=== PATIENT | female | born 1995 | race Caucasian/White ===

== ENCOUNTER 2018-10-11 09:49 | Inpatient (IN) | payer BC ==
[2018-10-11] MEDS ORDERED: fentaNYL 100 MCG/2 ML SDV EPIDUR PRN (11:59)
[2018-10-11] MEDS ORDERED: diphenhydrAMINE 50 MG/ML SDV IVPUSH PRN (11:59)
[2018-10-11] MEDS ORDERED: ePHEDrine 50 MG/ML SDV IVPUSH PRN (11:59)
[2018-10-11] MEDS ORDERED: fentaNYL/Bupivacaine-NS 2 MCG/ML-0.125%/PF 100 ML Bag EP SCH (12:00)
[2018-10-11] MEDS ORDERED: Ondansetron 4 MG/2 ML SDV IVPUSH PRN (12:02)
[2018-10-11] MEDS ORDERED: Lidocaine 1% 50 ML MDV INJECT ONE (12:02)
[2018-10-11] MEDS ORDERED: Nalbuphine 20 MG/ML 1 ML Syringe IVPUSH PRN (12:02)
[2018-10-11] MEDS ORDERED: Sodium Chloride 0.9% 10 ML Syringe FLUSH PRN (12:02)
[2018-10-11] MEDS ORDERED: Lactated Ringers 1,000 ML IV SCH (12:15)
[2018-10-11] MEDS ORDERED: Oxytocin/Lactated Ringers 10 UNIT/1,000 ML BAG IV SCH ×2 (12:15)
[2018-10-11] MEDS ORDERED: Lidocaine 1% 50 ML MDV ONE (19:38)
--- NOTE | 2018-10-11 23:56 | PCM.SN ---
- Free Text/Narrative Note: Stage I- Patient presented in active labor. AROM clear fluid. Stage II - of viable female, weight 7#11oz, 8/9 APGARS. Head delivered in controlled manner over intact perineum. Body and shoulders atraumatically. Positive cry. Cord clamped and cut. Stage III - of intact placenta. 3vc. EBL 300.
[2018-10-12] MEDS ORDERED: Docusate Sodium 100 MG Cap PO PRN (01:06)
[2018-10-12] MEDS ORDERED: Benzocaine/Menthol 20%-0.5% Spray 56 GM Canister TOP PRN (01:06)
[2018-10-12] MEDS ORDERED: Lanolin 100% Cream 7 GM Tube TOP PRN (01:06)
[2018-10-12] MEDS ORDERED: Witch Hazel Medicated Pads 100/Jar TOP PRN (01:06)
[2018-10-12] MEDS: Ibuprofen 600 MG Tab PO PRN ×3 (01:23→20:16)
--- NOTE | 2018-10-12 08:54 | PCM.PNPP ---
- General Info Date of Service: 10/12/18 Functional Status: Reports: Pain Controlled - Review of Systems General: Reports: No Symptoms HEENT: Reports: No Symptoms Pulmonary: Reports: No Symptoms Cardiovascular: Reports: No Symptoms Gastrointestinal: Reports: No Symptoms Genitourinary: Reports: No Symptoms Musculoskeletal: Reports: No Symptoms Skin: Reports: No Symptoms Neurological: Reports: No Symptoms Psychiatric: Reports: No Symptoms - General Info Date of Service: 10/12/18 - Patient Data Vital Signs - Most Recent: Last Vital Signs Temp 36.2 C 10/12/18 03:58 Pulse 76 10/12/18 03:58 Resp 16 10/12/18 03:58 BP 122/77 10/12/18 03:58 Pulse Ox 100 10/12/18 03:58 Weight - Most Recent: 87.997 kg I&O - Last 24 Hours: Intake & Output 10/11/18 10/12/18 10/12/18 22:59 06:59 14:59 Intake Total 1000 Balance 1000 Lab Results - Last 24 Hours: Laboratory Results - last 24 hr 10/11/18 10/11/18 Range/Units 12:25 12:25 WBC 7.56 (3.98-10.04) K/mm3 RBC 3.94 L (3.98-5.22) M/mm3 Hgb 11.5 (11.2-15.7) gm/L Hct 35.3 (34.1-44.9) % MCV 89.6 (79.4-94.8) fl MCH 29.2 (25.6-32.2) pg MCHC 32.6 (32.2-35.5) g/dl RDW Std Deviation 40.9 (36.4-46.3) fL Plt Count 249 (182-369) K/mm3 MPV 9.6 (9.4-12.3) fl Neut % (Auto) 73.9 H (34.0-71.1) % Lymph % (Auto) 21.2 (19.3-51.7) % [place] % (Auto) 4.5 L (4.7-12.5) % Eos % (Auto) 0 L (0.7-5.8) Baso % (Auto) 0.0 L (0.1-1.2) % Neut # (Auto) 5.59 (1.56-6.13) K/mm3 Lymph # (Auto) 1.60 (1.18-3.74) K/mm3 [place] # (Auto) 0.34 (0.24-0.36) K/mm3 Eos # (Auto) 0.00 L (0.04-0.36) K/mm3 Baso # (Auto) 0.00 L (0.01-0.08) K/mm3 Blood Type O POSITIVE Gel Antibody Screen Negative Med Orders - Current: Current Medications Benzocaine/Menthol (Dermoplast Pain Relief [place]) 0 gm TOP ASDIRECTED PRN PRN Reason: Perineal Comfort Measure Last Admin: 10/12/18 01:20 Dose: 1 canister Docusate Sodium (Colace) 100 mg PO BID PRN PRN Reason: Constipation Last Admin: 10/12/18 01:24 Dose: 100 mg Emollient Ointment (Lansinoh Hpa) 0 gm TOP ASDIRECTED PRN PRN Reason: Sore Nipples Ibuprofen (Motrin) 600 mg PO Q6H PRN PRN Reason: Mild pain or fever Last Admin: 10/12/18 01:23 Dose: 600 mg Witch Genevieve (Tucks) 1 pad TOP ASDIRECTED PRN PRN Reason: Hemorrhoid pain Last Admin: 10/12/18 01:21 Dose: 1 tub Discontinued Medications Diphenhydramine HCl (Benadryl) 25 mg IVPUSH Q6H PRN PRN Reason: Itching Ephedrine Sulfate (Ephedrine Sulfate) 5 mg IVPUSH ASDIRECTED PRN PRN Reason: HYPOTENTSION Fentanyl (Sublimaze) 100 mcg EPIDUR Q3H PRN PRN Reason: Pain Fentanyl/Bupivacaine HCl (Oylvufwx-Rfubu-Bi 2 Mcg/Ml-0.125%) 100 ml EP ASDIRECTED LENIN Lactated Ringer's (Ringers, Lactated) 1,000 mls @ 100 mls/hr IV ASDIRECTED LENIN Oxytocin/Lactated Ringer's (Pitocin In Lr 10 Units/1,000 Ml) 10 unit in 1,000 mls @ 12 mls/hr IV TITRATE LENIN; Protocol Oxytocin/Lactated Ringer's (Pitocin In Lr 10 Units/1,000 Ml) 10 unit in 1,000 mls @ 100 mls/hr IV .CONTINUOUS LENIN; Protocol Last Admin: 10/11/18 23:21 Dose: 100 mls/hr Lidocaine HCl (Xylocaine 1%) 50 ml INJECT ONETIME ONE Stop: 10/11/18 12:03 Last Admin: 10/11/18 22:50 Dose: 50 ml Lidocaine HCl (Xylocaine 1%) Confirm Administered Dose 50 ml .ROUTE .STK-MED ONE Stop: 10/11/18 19:39 Last Admin: 10/11/18 23:20 Dose: Not Given Nalbuphine HCl (Nubain) 10 mg IVPUSH Q2H PRN PRN Reason: pain Ondansetron HCl (Zofran) 4 mg IVPUSH Q4H PRN PRN Reason: Nausea/Vomiting Sodium Chloride (Saline Flush) 10 ml FLUSH ASDIRECTED PRN PRN Reason: Keep Vein Open - Infant Interaction Infant Disposition, : Heaters at Bedside Support Person: Mother, Friend - Recovery Exam Fundal Tone: Firm Fundal Level: 1 Fingerbreadths Below Umbilicus Fundal Placement: Midline Lochia Amount: Small, Moderate Lochia Color: Rubra/Red Perineum Description: Edematous, Other (see below) Other Perinuem Description: 2 nd degree with repair Episiotomy/Laceration: Approximated Bladder Status: Voiding Urinary Elimination: Voided - Exam General: Alert, Oriented HEENT: Pupils Equal Neck: Supple Lungs: Clear to Auscultation, Normal Respiratory Effort Cardiovascular: Regular Rate, Regular Rhythm GI/Abdominal Exam: Normal Bowel Sounds, Soft, Non-Tender, No Organomegaly, No Distention, No Abnormal Bruit, No Mass, Pelvis Stable Extremities: Normal Inspection, Normal Range of Motion, Non-Tender, No Pedal Edema, Normal Capillary Refill Wound/Incisions: Healing Well Neurological: No New Focal Deficit Psy/Mental Status: Alert, Normal Affect, Normal Mood - Problem List Review Problem List Initiated/Reviewed/Updated: Yes - My Orders Last 24 Hours: My Active Orders 10/12/18 01:06 Activity as Tolerated [RC] PER UNIT ROUTINE Vital Signs [RC] 21,03,09,15 Benzocaine/Menthol [Dermoplast Pain Relief [place]] See Dose Instructions TOP ASDIRECTED PRN Docusate Sodium [Colace] 100 mg PO BID PRN Ibuprofen [Motrin] 600 mg PO Q6H PRN Lanolin [Lansinoh HPA] See Dose Instructions TOP ASDIRECTED PRN [place] [Tucks] 1 pad TOP ASDIRECTED PRN Assess Lochia [WOMSER] Per Unit Routine Assess Uterine Involution [WOMSER] Per Unit Routine Breast Pump [WOMSER] Per Unit Routine Heat Therapy [OM.PC] PRN Medication Administration Instruction [OM.PC] Routine Perineal Care [OM.PC] Per Unit Routine Sitz Bath [OM.PC] Per Unit Routine 10/12/18 Breakfast Regular Diet [DIET] 10/13/18 01:06 Heat Therapy [OM.PC] PRN - Assessment Assessment:: Term labor PPD1 s/p . Doing well.
--- NOTE | 2018-10-12 08:59 | PCM.LDHP ---
L&D History of Present Illness - General Date of Service: 10/11/18 Admit Problem/Dx: Admission Diagnosis/Problem Admission Diagnosis/Problem Source of Information: Patient, Provider, RN Notes Reviewed History Limitations: Reports: No Limitations - History of Present Illness Introduction:: 23 [address] of Dr[address] Crandall admitted this morning by Dr. Koroma in labor at 38w6d. AROM earlier in day clear fluid. No significant complications this . Regular care. 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: Psychiatric History: Reports: Anxiety, Depression Other Psychiatric History: duing well now has been off meds for over a year - Past Surgical History Other Musculoskeletal Surgeries/Procedures:: broken arm age 8 Social & Family History - Family History Family Medical History: Noncontributory - Tobacco Use Smoking Status *Q: Former Smoker Used Tobacco, but Quit: Yes Month/Year Tobacco Last Used: over a year ago Second Hand Smoke Exposure: No - Caffeine Use Caffeine Use: Reports: Soda - Recreational Drug Use Recreational Drug Use: No H&P Review of Systems - Review of Systems: Review Of Systems: See Below General: Reports: No Symptoms HEENT: Reports: No Symptoms Pulmonary: Reports: No Symptoms Cardiovascular: Reports: No Symptoms Gastrointestinal: Reports: No Symptoms Genitourinary: Reports: No Symptoms Musculoskeletal: Reports: No Symptoms Skin: Reports: No Symptoms Psychiatric: Reports: No Symptoms Neurological: Reports: No Symptoms Hematologic/Lymphatic: Reports: No Symptoms Immunologic: Reports: No Symptoms L&D Exam - Exam Exam: See Below - Vital Signs Vital Signs: Last Vital Signs Temp 36.2 C 10/12/18 03:58 Pulse 76 10/12/18 03:58 Resp 16 10/12/18 03:58 BP 122/77 10/12/18 03:58 Pulse Ox 100 10/12/18 03:58 Weight: 87.997 kg - OB Specific Contraction Intensity: Moderate Movement: Active Heart Tones: Present Heart Rate (FHR) Variability: Moderate (6-25 bmp) Presentation: Vertex - Narayanan Score Narayanan Score Cervix Position: Midposition Narayanan Score Consistency: Soft Narayanan Score Effacement: 51-70% Narayanan Score Dilation: > 5 cm Narayanan Score Infant's Station: -1 ,0 Narayanan Score Total: 10 - Patient Data Lab Results Last 24 hrs: Laboratory Results - last 24 hr 10/11/18 10/11/18 Range/Units 12:25 12:25 WBC 7.56 (3.98-10.04) K/mm3 RBC 3.94 L (3.98-5.22) M/mm3 Hgb 11.5 (11.2-15.7) gm/L Hct 35.3 (34.1-44.9) % MCV 89.6 (79.4-94.8) fl MCH 29.2 (25.6-32.2) pg MCHC 32.6 (32.2-35.5) g/dl RDW Std Deviation 40.9 (36.4-46.3) fL Plt Count 249 (182-369) K/mm3 MPV 9.6 (9.4-12.3) fl Neut % (Auto) 73.9 H (34.0-71.1) % Lymph % (Auto) 21.2 (19.3-51.7) % [place] % (Auto) 4.5 L (4.7-12.5) % Eos % (Auto) 0 L (0.7-5.8) Baso % (Auto) 0.0 L (0.1-1.2) % Neut # (Auto) 5.59 (1.56-6.13) K/mm3 Lymph # (Auto) 1.60 (1.18-3.74) K/mm3 [place] # (Auto) 0.34 (0.24-0.36) K/mm3 Eos # (Auto) 0.00 L (0.04-0.36) K/mm3 Baso # (Auto) 0.00 L (0.01-0.08) K/mm3 Blood Type O POSITIVE Gel Antibody Screen Negative Result Diagrams: 10/11/18 12:25 Problem List Initiated/Reviewed/Updated: Yes Orders Last 24hrs: Active Orders 24 hr Category Date Time Status Activity as Tolerated [RC] PER UNIT ROUTINE Care 10/12/18 01:06 Active Vital Signs [RC] 21,03,09,15 Care 10/12/18 01:06 Active Regular Diet [DIET] Diet 10/12/18 Breakfast Active RAPID PLASMA REAGIN,RPR [CHEM] Routine Lab 10/11/18 12:25 Received Benzocaine/Menthol [Dermoplast Pain Relief [place]] Med 10/12/18 01:06 Active See Dose Instructions TOP ASDIRECTED PRN Docusate Sodium [Colace] Med 10/12/18 01:06 Active 100 mg PO BID PRN Ibuprofen [Motrin] Med 10/12/18 01:06 Active 600 mg PO Q6H PRN Lanolin [Lansinoh HPA] Med 10/12/18 01:06 Active See Dose Instructions TOP ASDIRECTED PRN Witch Genevieve [Tucks] Med 10/12/18 01:06 Active 1 pad TOP ASDIRECTED PRN Assess Lochia [WOMSER] Per Unit Routine Oth 10/12/18 01:06 Ordered Assess Uterine Involution [WOMSER] Per Unit Routine Oth 10/12/18 01:06 Ordered Breast Pump [WOMSER] Per Unit Routine Oth 10/12/18 01:06 Ordered Heat Therapy [OM.PC] PRN Oth 10/12/18 01:06 Ordered Heat Therapy [OM.PC] PRN Oth 10/13/18 01:06 Ordered Medication Administration Instruction [OM.PC] Routine Oth 10/12/18 01:06 Ordered Perineal Care [OM.PC] Per Unit Routine Oth 10/12/18 01:06 Ordered Sitz Bath [OM.PC] Per Unit Routine Oth 10/12/18 01:06 Ordered Resuscitation Status Routine Resus Stat 10/11/18 10:19 Ordered Medication Orders Benzocaine/Menthol (Dermoplast Pain Relief [place]) 0 gm TOP ASDIRECTED PRN PRN Reason: Perineal Comfort Measure Last Admin: 10/12/18 01:20 Dose: 1 canister Docusate Sodium (Colace) 100 mg PO BID PRN PRN Reason: Constipation Last Admin: 10/12/18 01:24 Dose: 100 mg Emollient Ointment (Lansinoh Hpa) 0 gm TOP ASDIRECTED PRN PRN Reason: Sore Nipples Ibuprofen (Motrin) 600 mg PO Q6H PRN PRN Reason: Mild pain or fever Last Admin: 10/12/18 01:23 Dose: 600 mg Witch Genevieve (Tucks) 1 pad TOP ASDIRECTED PRN PRN Reason: Hemorrhoid pain Last Admin: 10/12/18 01:21 Dose: 1 tub Assessment/Plan Comment:: Doing well. 6 cm. Continue to monitor and anticipate unless otherwise indicated.
[2018-10-12] MEDS ORDERED: Calcium Carbonate 500 MG Tab.Chew CHEW PRN (12:16)
[2018-10-13] MEDS: Ibuprofen 600 MG Tab PO PRN (07:56)
--- NOTE | 2018-10-13 08:41 | PCM.DCSUM1 ---
Discharge Summary - Hospital Course Diagnosis: Stroke: No - Discharge Data Discharge Date: 10/13/18 Discharge Disposition: Home, Self-Care 01 Condition: Good - Patient Instructions Diet: Usual Diet as Tolerated Activity: No Strenuous Activities Driving: May Drive Today Showering/Bathing: May Shower Notify Provider of: Fever, Increased Pain, Swelling and Redness, Drainage, Nausea and/or Vomiting - Discharge Plan *PRESCRIPTION DRUG MONITORING PROGRAM REVIEWED*: No *COPY OF PRESCRIPTION DRUG MONITORING REPORT IN PATIENT [place]: No Home Medications: Home Meds Acetaminophen/Butalbital/Caff [Fioricet 325-50-40 MG] 1 each PO DAILY 10/11/18 [ History] Cyclobenzaprine [Flexeril] 10 mg PO DAILY 10/11/18 [History] Omeprazole 20 mg PO DAILY 10/11/18 [History] Prenat Vit Comb.10/Iron/Fa/Dha [Vitafol-OB + DHA] 1 each PO DAILY 10/11/18 [ History] diphenhydrAMINE [Benadryl] 50 mg PO DAILY PRN 10/11/18 [History] Referrals: Krista Conti MD [Physician] - - Discharge Summary/Plan Comment DC Time >30 min.: No - General Info Date of Service: 10/13/18 Functional Status: Reports: Pain Controlled - Review of Systems General: Reports: No Symptoms HEENT: Reports: No Symptoms Pulmonary: Reports: No Symptoms Cardiovascular: Reports: No Symptoms Gastrointestinal: Reports: No Symptoms Genitourinary: Reports: No Symptoms Musculoskeletal: Reports: No Symptoms Skin: Reports: No Symptoms Neurological: Reports: No Symptoms Psychiatric: Reports: No Symptoms - Patient Data Vitals - Most Recent: Last Vital Signs Temp 36.7 C 10/13/18 03:12 Pulse 86 10/13/18 03:12 Resp 16 10/12/18 21:26 BP 113/74 10/13/18 03:12 Pulse Ox 98 10/13/18 03:12 Weight - Most Recent: 87.997 kg I&O - Last 24 hours: Intake & Output 10/12/18 10/13/18 10/13/18 22:59 06:59 14:59 Intake Total 120 Balance 120 Lab Results - Last 24 hrs: Laboratory Results - last 24 hr 10/11/18 Range/Units 12:25 Gel Antibody Screen Negative Med Orders - Current: Current Medications Benzocaine/Menthol (Dermoplast Pain Relief [place]) 0 gm TOP ASDIRECTED PRN PRN Reason: Perineal Comfort Measure Last Admin: 10/12/18 01:20 Dose: 1 canister Calcium Carbonate/Glycine (Tums) 1,000 mg CHEW Q2HR PRN PRN Reason: Heartburn Last Admin: 10/12/18 12:26 Dose: 1,000 mg Docusate Sodium (Colace) 100 mg PO BID PRN PRN Reason: Constipation Last Admin: 10/12/18 01:24 Dose: 100 mg Emollient Ointment (Lansinoh Hpa) 0 gm TOP ASDIRECTED PRN PRN Reason: Sore Nipples Ibuprofen (Motrin) 600 mg PO Q6H PRN PRN Reason: Mild pain or fever Last Admin: 10/13/18 07:56 Dose: 600 mg Witch [place]evieve (Tucks) 1 pad TOP ASDIRECTED PRN PRN Reason: Hemorrhoid pain Last Admin: 10/12/18 01:21 Dose: 1 tub Discontinued Medications Diphenhydramine HCl (Benadryl) 25 mg IVPUSH Q6H PRN PRN Reason: Itching Ephedrine Sulfate (Ephedrine Sulfate) 5 mg IVPUSH ASDIRECTED PRN PRN Reason: HYPOTENTSION Fentanyl (Sublimaze) 100 mcg EPIDUR Q3H PRN PRN Reason: Pain Fentanyl/Bupivacaine HCl (Jacmsgne-Fyooj-Az 2 Mcg/Ml-0.125%) 100 ml EP ASDIRECTED LENIN Lactated Ringer's (Ringers, Lactated) 1,000 mls @ 100 mls/hr IV ASDIRECTED LENIN Oxytocin/Lactated Ringer's (Pitocin In Lr 10 Units/1,000 Ml) 10 unit in 1,000 mls @ 12 mls/hr IV TITRATE LENIN; Protocol Oxytocin/Lactated Ringer's (Pitocin In Lr 10 Units/1,000 Ml) 10 unit in 1,000 mls @ 100 mls/hr IV .CONTINUOUS LENIN; Protocol Last Admin: 10/11/18 23:21 Dose: 100 mls/hr Lidocaine HCl (Xylocaine 1%) 50 ml INJECT ONETIME ONE Stop: 10/11/18 12:03 Last Admin: 10/11/18 22:50 Dose: 50 ml Lidocaine HCl (Xylocaine 1%) Confirm Administered Dose 50 ml .ROUTE .STK-MED ONE Stop: 10/11/18 19:39 Last Admin: 10/11/18 23:20 Dose: Not Given Nalbuphine HCl (Nubain) 10 mg IVPUSH Q2H PRN PRN Reason: pain Ondansetron HCl (Zofran) 4 mg IVPUSH Q4H PRN PRN Reason: Nausea/Vomiting Sodium Chloride (Saline Flush) 10 ml FLUSH ASDIRECTED PRN PRN Reason: Keep Vein Open - Exam General: Reports: Alert, Oriented HEENT: Reports: Pupils Equal, Pupils Reactive, EOMI, Mucous Membr. Moist/[place] Neck: Reports: Supple Lungs: Reports: Clear to Auscultation, Normal Respiratory Effort Cardiovascular: Reports: Regular Rate, Regular Rhythm GI/Abdominal Exam: Normal Bowel Sounds, Soft, Non-Tender, No Organomegaly, No Distention, No Abnormal Bruit, No Mass, Pelvis Stable Back Exam: Reports: Normal Inspection, Full Range of Motion Extremities: Normal Inspection, Normal Range of Motion, Non-Tender, No Pedal Edema, Normal Capillary Refill Skin: Reports: Warm, Dry, Intact Wound/Incisions: Reports: Healing Well Neurological: Reports: No New Focal Deficit Psy/Mental Status: Reports: Alert, Normal Affect, Normal Mood
--- NOTE | 2018-10-14 07:39 | HP ---
DATE OF ADMISSION: 10/11/2018 ADMISSION DIAGNOSIS: A 38-5/7th weeks' intrauterine , active labor, advanced cervical dilation. HISTORY OF PRESENT ILLNESS: The patient is a 23-year-old, 1, para 0, white female who has an JOSE ALFREDO of 10/20/2018 as based upon a certain last menstrual period starting 01/13/2018 and supported by 2 ultrasounds done on 04/17/2018 and 06/05/2018. The patient has been admitted to Labor and Delivery with contractions every 3-5 minutes. Her cervix is 4 cm, 90% effaced, bulging bag of mendez, anterior, cephalic presentation, very soft consistency. The patient has undergone artificial rupture of membranes with resultant clear amniotic fluid. Over the course of the 2 hours prior to rupture of membranes, her cervix changed from 3+ to 4 cm and thinned to 90% to 95%. 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 Certain last menstrual period 01/13/2018. The patient had menarche at age 14. Cycles every 28 days. Last menstrual period was definite. No control at the time of conception. No STDs in the past. No abnormal Pap smears in the past. The patient's course was relatively unremarkable. Her [place] Depression Screen score on 04/17/2018 was 19/30. She has had some posttraumatic stress disorder having witnessed an assisted suicide 3 years ago. She also has suffered from migraine headaches. Her group B strep screen was negative. She did have some gastroesophageal reflux during . The patient has had a flu shot on 07/03/2018. Her Tdap was done on 07/31/2018, and she is rubella immune. Her weight gain during the course of the was from an initial weight of 172.4 pounds to 189 pounds. She reports her pregravid weight to be 164.6 pounds. Her height is 5 feet 3 inches. Her prepregnancy body mass index was 28.9. LABORATORY RESULTS: Her blood type is O positive. Antibody screen is negative. First hemoglobin was 14.2 g/dL. Platelets were 266,000. She is rubella immune. RPR is nonreactive. Hepatitis B surface antigen and HIV assays were both negative. Chlamydia and gonorrhea assays both negative. Second trimester labs showed hemoglobin of 14.3 g/dL. Platelets were 275,000. The 1-hour GTT was 135. The 3-hour GTT showed fasting blood sugar of 78, 1-hour GTT of 120, 2-hour GTT of 101, and 3-hour glucose of 98. Group B strep screen was negative. She had influenza A and B antigen assays done on 10/02/2018 and both were negative. Group A strep confirmation showed normal cyndi on 09/30/2018. Rapid strep was also negative at that time. ALLERGIES: None. CURRENT MEDICATIONS: 1. Azithromycin 250 mg 2 tabs day 1 and then 1 tab per day thereafter. The patient just finished this course. 2. She takes vitamins on a daily basis. 3. Weyymvdvxj-VLKY-jbqheqvf - 50-325 mg tablets 1-2 every 6 hours p.r.n. for migraine headaches. 4. Cyclobenzaprine 10 mg p.o. 3 times a day p.r.n. 5. Ranitidine 150 mg 1 every 12 hours p.r.n. PAST MEDICAL HISTORY: 1. Anxiety/PTSD. 2. Depression. The patient was on bupropion and escitalopram 1 year ago, but has not taken during the course of the . FAMILY HISTORY: The patient's nephew has autism. Mother with type 2 diabetes and hypertension. Sister with type 2 diabetes. Paternal grandmother and maternal grandmother with hypothyroidism. SOCIAL HISTORY: The patient is single. She lives in [place], [place]. She does not use any significant amounts of alcohol, drugs, or tobacco. REVIEW OF SYSTEMS: SKIN: Negative. HEENT, NECK, AND BACK: Unremarkable. CARDIOVASCULAR: No chest pain, shortness of breath, or exercise intolerance. RESPIRATORY: No infectious symptoms. BREASTS: Changes associated with only. The patient plans to bottle feed. GI: Appetite has been good. : Changes associated with . MUSCULOSKELETAL: Occasional edema, otherwise unremarkable. NEUROLOGICAL: Negative. PHYSICAL EXAMINATION: GENERAL: The patient is a well-developed, well-nourished, pleasant female, who is in only minimal distress. SKIN: Warm, dry, without lesions. HEENT, NECK, AND BACK: Within normal limits. VITAL SIGNS: Blood pressure on last evaluation in the clinic was 108/72. Weight was 189. heart rate was 140. LUNGS: Clear with good breath sounds in all lung diane. CARDIOVASCULAR: Shows regular rate and rhythm without murmurs. BREASTS: Deferred at this time. ABDOMEN: Protuberant with with fundal height consistent with term . Baby is in vertex presentation. CERVIX: 4 cm, 90% effaced, bulging bag of mendez, anterior position, -2 to -3 station and well applied to the cervix. Baby in a cephalic presentation. EXTREMITIES AND NEUROLOGICAL: Grossly within normal limits. ASSESSMENT: 1. Term intrauterine at 38-5/7th weeks' gestational age with an JOSE ALFREDO of 10/20/2018, in active labor with advanced cervical dilation. 2. Group B strep screen negative. 3. The patient has had some anxiety and posttraumatic stress disorder. 4. The patient has had her Tdap and her flu shot and is rubella immune. 5. The patient is desiring epidural in Labor and Delivery if natural childbirth is not adequate. PLAN: 1. Anticipate normal spontaneous vaginal delivery. 2. Epidural p.r.n. for pain. 3. CBC. 4. Routine labor care. MMODAL /[id number]
== END 2018-10-13 12:10 | disposition home or self-care (01) | DRG 560 ==
LOC: JD.OBCHECK 09:49 → JD.OB 09:49 → JD.OBCHECK 10:00 → JD.OB 22:48 → OBSVTOIN 22:48
PROVIDERS: ADMIT Obstetrics & Gynecology; ATTEND Obstetrics & Gynecology
PROC: 0KQM0ZZ Repair Perineum Muscle, Open Approach (ICD-10-PCS; principal; 2018-10-11)
PROC: 10907ZC Drainage of Amniotic Fluid, Therapeutic from Products of Conception, Via Natural or Artificial Opening (ICD-10-PCS; principal; 2018-10-11)
PROC: 10E0XZZ Delivery of Products of Conception, External Approach (ICD-10-PCS; principal; 2018-10-11)
DX: O99.354 Diseases of the nervous system complicating childbirth (principal); O99.344 Other mental disorders complicating childbirth; Z3A.38 38 weeks gestation of pregnancy; Z37.0 Single live birth; G43.909 Migraine, unspecified, not intractable, without status migrainosus; O70.1 Second degree perineal laceration during delivery; F43.10 Post-traumatic stress disorder, unspecified; O99.62 Diseases of the digestive system complicating childbirth; K21.9 Gastro-esophageal reflux disease without esophagitis; F41.9 Anxiety disorder, unspecified; F32.9 Major depressive disorder, single episode, unspecified; Z91.010 Allergy to peanuts; Z91.018 Allergy to other foods; Z79.899 Other long term (current) drug therapy; Z87.891 Personal history of nicotine dependence
CPT/HCPCS: 36415; 59025; 59409; 85025; 86592; 86850; 86900; 86901; A9270-GY; J2590

== ENCOUNTER 2019-07-27 17:35 | Emergency (ER) | payer BC ==
[2019-07-27] MEDS ORDERED: Ketorolac 60 MG/2 ML SDV IM ONE (18:02)
--- NOTE | 2019-07-27 18:16 | EDM.PDOC ---
ED HPI GENERAL MEDICAL PROBLEM - General Chief Complaint: Lower Extremity Injury/Pain Stated Complaint: RIGHT ANKLE INJURY Time Seen by Provider: 07/27/19 17:39 Source of Information: Reports: Patient, RN Notes Reviewed History Limitations: Reports: No Limitations - History of Present Illness INITIAL COMMENTS - FREE TEXT/NARRATIVE: Patient is a 24-year-old female who presents to the ED for the evaluation of a right ankle injury. Patient states that around 4:30 this afternoon, she was carrying boxes and totes downstairs, and missed the last step and twisted her right ankle. She notes that she did fall with this. She does most of the pain to the lateral side of the right ankle and proximal foot. She did put some ice on it, but has not used any Tylenol or ibuprofen. There is slight swelling and bruising noted to this area. She notes that any kind of weight at all causes immense pain. She denies any chance of . She would rate her pain at an 8 out of 10 today. 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: Reports: Other (see below) Other 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: ice Right Feet Pain Score (Numeric/FACES): 8 - Related Data Allergies Allergy/AdvReac Type Severity Reaction Status Date / Time No Known Allergies Allergy Verified 07/27/19 17:42 Home Meds: Home Meds LORazepam [Ativan] 0.5 mg PO ASDIRECTED 07/27/19 [History] Norgestimate-Ethinyl Estradiol [Estarylla 0.25-0.035 mg Tablet] 1 tab PO DAILY 07/27/19 [History] Ranitidine [Zantac] 150 mg PO DAILY 07/27/19 [History] Sertraline [Zoloft] 50 mg PO DAILY 07/27/19 [History] cloNIDine HCl [Catapres] 0.1 mg PO DAILY 07/27/19 [History] 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: Psychiatric History: Reports: Anxiety, Depression Other Psychiatric History: duing well now has been off meds for over a year - Past Surgical History Other Musculoskeletal Surgeries/Procedures:: broken arm age 8 Social & Family History - Family History Family Medical History: Noncontributory - Tobacco Use Smoking Status *Q: Never Smoker - Caffeine Use Caffeine Use: Reports: Coffee, Soda, Tea - Recreational Drug Use Recreational Drug Use: No - Living Situation & Occupation Living situation: Reports: Single Occupation: Employed Review of Systems - Review of Systems Review Of Systems: See Below Constitutional: Reports: No Symptoms Eyes: Reports: No Symptoms Ears: Reports: No Symptoms Nose: Reports: No Symptoms Mouth/Throat: Reports: No Symptoms Respiratory: Reports: No Symptoms Cardiovascular: Reports: No Symptoms GI/Abdominal: Reports: No Symptoms Genitourinary: Reports: No Symptoms Musculoskeletal: Reports: Joint Pain (R ankle/proximal foot) Skin: Reports: Bruising (R ankle/proximal foot) Neurological: Denies: Numbness, Tingling Psychiatric: Reports: No Symptoms ED EXAM, GENERAL - Physical Exam Exam: See Below Exam Limited By: No Limitations General Appearance: Alert, WD/WN, No Apparent Distress Eye Exam: Bilateral Eye: EOMI, Normal Inspection, PERRL Throat/Mouth: Normal Inspection, Normal Lips, Normal Teeth, Normal Gums, Normal Oropharynx, Normal Voice, No Airway Compromise Head: Atraumatic, Normocephalic Neck: Normal Inspection Respiratory/Chest: No Respiratory Distress, Lungs Clear, Normal Breath Sounds, No Accessory Muscle Use, Chest Non-Tender Cardiovascular: Normal Peripheral Pulses, Regular Rate, Rhythm, No Murmur Peripheral Pulses: 3+: Dorsalis Pedis (L), Dorsalis Pedis (R) Extremities: Normal Inspection, Normal Range of Motion, Normal Capillary Refill Neurological: Alert, Oriented, Normal Cognition, No Motor/Sensory Deficits, Abnormal Gait (limping gait d/t pain, she was using her brother as kind of a crutch) Psychiatric: Normal Affect, Normal Mood Skin Exam: Warm, Dry, Intact, Normal Color, No Rash, Ecchymosis (Small area of ecchymosis and swelling noted to the right proximal lateral foot) Course - Vital Signs Last Recorded V/S: Last Vital Signs Temp 97.4 F 07/27/19 17:49 Pulse 70 07/27/19 17:49 Resp 20 07/27/19 17:49 BP 95/71 07/27/19 17:49 Pulse Ox 100 07/27/19 17:49 - Orders/Labs/Meds Orders: Active Orders 24 hr Category Date Time Status Ankle Min 3V Rt [CR] Stat Exams 07/27/19 18:01 Ordered Meds: Medications Discontinued Medications Generic Name Dose Route Start Last Admin Trade Name Freq PRN Reason Stop Dose Admin Ketorolac Tromethamine 60 mg 07/27/19 18:02 07/27/19 18:37 Toradol IM 07/27/19 18:03 60 mg ONETIME ONE Administration - Re-Assessments/Exams Free Text/Narrative Re-Assessment/Exam: 07/27/19 18:15 Patient presents to the ED for evaluation of a right ankle injury. Will get x- rays, and did order 60 mg IM Toradol for initial management. 07/27/19 18:54 X-ray has been done, and demonstrate no acute fracture or abnormalities patient by myself or Dr. Grayson. We'll discharge home with general recommendations. Departure - Departure Time of Disposition: 18:54 Disposition: Home, Self-Care 01 Condition: Fair Clinical Impression: Right ankle sprain Qualifiers: Encounter type: initial encounter Involved ligament of ankle: unspecified ligament Qualified Code(s): S93.401A - Sprain of unspecified ligament of right ankle, initial encounter - Discharge Information *PRESCRIPTION DRUG MONITORING PROGRAM REVIEWED*: No *COPY OF PRESCRIPTION DRUG MONITORING REPORT IN PATIENT RENETTA: No Instructions: Ankle Sprain, [id number] Referrals: Gladys Addison ROUTE SERVICE REPRESENTATIVE [Primary Care Provider] - Forms: ED Department Discharge, ED Return to Work/School Form Additional Instructions: You have been evaluated in the ED for your right ankle/foot pain. Your x-ray demonstrated no acute fracture or bony abnormality in your right ankle or foot. Please use ice as tolerated to the affected area. Please try to elevate the affected area to relieve swelling. You may take Tylenol 500 mg or ibuprofen 600mg q6 hrs for pain relief. Please do so until you have a tolerable level of pain with activity. Do not exceed 4000mg Tylenol or 3200mg ibuprofen in a 24 hour time period. Please return to ED if your symptoms should change or worsen. - My Orders Last 24 Hours: My Active Orders 07/27/19 18:01 Ankle Min 3V Rt [CR] Stat - Assessment/Plan Last 24 Hours: My Active Orders 07/27/19 18:01 Ankle Min 3V Rt [CR] Stat
--- NOTE | 2019-07-28 06:54 | CR ---
Right ankle: Four views of the right ankle were obtained. Comparison: No previous ankle study. Ankle mortise is symmetric. No fracture, dislocation or other bony abnormality is seen. Impression: 1. No abnormality is appreciated on right ankle exam. Diagnostic code #1
== END 2019-07-27 19:05 | disposition home or self-care (01) ==
LOC: JD.ED 17:35
DX: S93.401A Sprain of unspecified ligament of right ankle, initial encounter (principal); F32.9 Major depressive disorder, single episode, unspecified; F41.9 Anxiety disorder, unspecified; Z79.899 Other long term (current) drug therapy; W10.9XXA Fall (on) (from) unspecified stairs and steps, initial encounter; X50.1XXA Overexertion from prolonged static or awkward postures, initial encounter; Y93.89 Activity, other specified
CPT/HCPCS: 73610; 96372; 99283; J1885

== ENCOUNTER 2020-06-18 00:36 | Emergency (ER) | payer MEDICAID ==
--- NOTE | 2020-06-18 01:19 | EDM.PDOC ---
ED HPI GENERAL MEDICAL PROBLEM - General Chief Complaint: Lower Extremity Injury/Pain Stated Complaint: ANKLE INJURY Time Seen by Provider: 06/18/20 00:43 Source of Information: Reports: Patient History Limitations: Reports: No Limitations - History of Present Illness INITIAL COMMENTS - FREE TEXT/NARRATIVE: The patient presents with right ankle pain. She was outside at a friend's house and she stepped in a hole and twisted her right ankle. She could bear weight on it but it does hurt. She also hurt her left ankle but that does not hurt as much. Onset: Sudden Duration: Minutes: Location: Reports: Lower Extremity, Right (ankle) Quality: Reports: Sharp Severity: Moderate Improves with: Reports: Immobilization Worsens with: Reports: Movement Context: Reports: Trauma (twisted her ankle) Associated Symptoms: Reports: No Other Symptoms Right Pain Score (Numeric/FACES): 6 - Related Data Allergies Allergy/AdvReac Type Severity Reaction Status Date / Time No Known Allergies Allergy Verified 06/18/20 00:49 Home Meds: Home Meds LORazepam [Ativan] 0.5 mg PO ASDIRECTED 07/27/19 [History] Ranitidine [Zantac] 150 mg PO DAILY 07/27/19 [History] Sertraline [Zoloft] 50 mg PO DAILY 07/27/19 [History] cloNIDine HCL [Catapres] 0.1 mg PO DAILY 07/27/19 [History] norgestimate-ethinyl estradioL [Estarylla 0.25-0.035 mg Tablet] 1 tab PO DAILY 07/27/19 [History] Past Medical History - Past Health History Medical/Surgical History: Denies 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: Psychiatric History: Reports: Anxiety, Depression Other Psychiatric History: duing well now has been off meds for over a year - Past Surgical History Other Musculoskeletal Surgeries/Procedures:: broken arm age 8 Social & Family History - Family History Family Medical History: Noncontributory - Tobacco Use Smoking Status *Q: Never Smoker - Caffeine Use Caffeine Use: Reports: Coffee, Soda, Tea - Living Situation & Occupation Living situation: Reports: Single Occupation: Employed Review of Systems - Review of Systems Review Of Systems: See Below Constitutional: Reports: No Symptoms Eyes: Reports: No Symptoms Ears: Reports: No Symptoms Nose: Reports: No Symptoms Mouth/Throat: Reports: No Symptoms Respiratory: Reports: No Symptoms Cardiovascular: Reports: No Symptoms GI/Abdominal: Reports: No Symptoms Musculoskeletal: Reports: Other (right ankle pain) ED EXAM, GENERAL - Physical Exam Exam: See Below Exam Limited By: No Limitations General Appearance: Alert, No Apparent Distress Ears: Normal External Exam Nose: Normal Inspection Head: Atraumatic, Normocephalic Neck: Normal Inspection Respiratory/Chest: No Respiratory Distress Extremities: Other (pain upon palpaton with mild edema to the right lateral ankle. Good sensation and pulses distally.) Course - Vital Signs Last Recorded V/S: Last Vital Signs Temp 97.3 F 06/18/20 00:46 Pulse 97 06/18/20 00:46 Resp 16 06/18/20 00:46 BP 133/75 06/18/20 00:46 Pulse Ox 100 06/18/20 00:46 - Orders/Labs/Meds Orders: Active Orders 24 hr Category Date Time Status Ankle Min 3V Rt [CR] Stat Exams 06/18/20 00:46 Taken Durable Medical Equipment for Discharge [DME for Oth 06/18/20 01:21 Ordered Discharge] [COMM] Stat Durable Medical Equipment for Discharge [DME for Oth 06/18/20 01:22 Ordered Discharge] [COMM] Stat - Re-Assessments/Exams Free Text/Narrative Re-Assessment/Exam: 06/18/20 01:19 I did an x-ray and it shows no fracture. I will discharge her home. 06/18/20 01:22 I will give her crutches and a splint. Departure - Departure Time of Disposition: 01:30 Disposition: Home, Self-Care 01 Condition: Good Clinical Impression: Right ankle sprain Qualifiers: Encounter type: initial encounter Involved ligament of ankle: unspecified ligament Qualified Code(s): S93.401A - Sprain of unspecified ligament of right ankle, initial encounter - Discharge Information Referrals: Gladys Addison SNOW MAKER [Primary Care Provider] - 1 Week Forms: ED Department Discharge, ED Return to Work/School Form Additional Instructions: Ice your ankle for 15 minutes 3 times per day for 2 days. Elevate your ankle as much as you can for 2 days. Take tylenol or motrin for pain. Use the splint and crutches as needed for pain. Sepsis Event Note (ED) - Evaluation Sepsis Screening Result: No Definite Risk - Focused Exam Vital Signs: Vital Signs Temp Pulse Resp BP Pulse Ox 06/18/20 00:46 97.3 F 97 16 133/75 100 - My Orders Last 24 Hours: My Active Orders 06/18/20 00:46 Ankle Min 3V Rt [CR] Stat 06/18/20 01:21 Durable Medical Equipment for Discharge [DME for Discharge] [COMM] Stat 06/18/20 01:22 Durable Medical Equipment for Discharge [DME for Discharge] [COMM] Stat - Assessment/Plan Last 24 Hours: My Active Orders 06/18/20 00:46 Ankle Min 3V Rt [CR] Stat 06/18/20 01:21 Durable Medical Equipment for Discharge [DME for Discharge] [COMM] Stat 06/18/20 01:22 Durable Medical Equipment for Discharge [DME for Discharge] [COMM] Stat
--- NOTE | 2020-06-21 15:57 | CR ---
Right ankle: 4 views of the right ankle were obtained. Comparison: Prior right ankle exam of 07/27/19. Ankle mortise is symmetric. Mild soft tissue swelling is seen. No acute fracture, dislocation or other bony abnormality is appreciated. Impression: 1. Soft tissue swelling. 2. No acute bony abnormality is appreciated. Diagnostic code #2 Study was dictated in MDT
== END 2020-06-18 01:40 | disposition home or self-care (01) ==
LOC: JD.ED 00:36
DX: S93.401A Sprain of unspecified ligament of right ankle, initial encounter (principal); F41.9 Anxiety disorder, unspecified; F32.9 Major depressive disorder, single episode, unspecified; Z79.899 Other long term (current) drug therapy; X50.1XXA Overexertion from prolonged static or awkward postures, initial encounter; Y92.009 Unspecified place in unspecified non-institutional (private) residence as the place of occurrence of the external cause
CPT/HCPCS: 73610-26-RT; 73610-RT; 99282; 99283

== ENCOUNTER 2020-10-16 17:09 | Emergency (ER) | payer MEDICAID ==
--- NOTE | 2020-10-16 17:42 | EDM.PDOC ---
ED HPI GENERAL MEDICAL PROBLEM - General Chief Complaint: Abdominal Pain Stated Complaint: R SIDE ABD PAIN Time Seen by Provider: 10/16/20 17:23 Source of Information: Reports: Patient, RN Notes Reviewed History Limitations: Reports: No Limitations - History of Present Illness INITIAL COMMENTS - FREE TEXT/NARRATIVE: Patient is a 25-year-old female who presents to the ED for the evaluation of her right-sided abdomen pain. Patient notes that she has been having right-sided mid abdomen/into her flank pain for the past couple days. She does note that it seems to worsen with stress, and feels better when she calms down. She did note however that the bumps on the ride over here did not feel pleasant. She notes this is a sharp stabbing pain, she has had no nausea or vomiting, or any fevers or chills however her temperature is 99.0 F when she is triaged into the ER, pulse is 88 bpm, 16 breaths/min respiratory rate is 16 breaths/min, blood pressure is 133/84, O2 sats are 97% on room air. Patient notes that she had similar pains when she was with her son, but never really had anything done about it. She notes that she is on her menses at this time. She did take some Tylenol last night and this seemed to help however these do not seem to be similar cramping pains like when she gets her period. She is not complaining of any further urinary symptoms like dysuria, frequency or urgency. She has had no abdomen surgeries. Patient notes she is a smoker, and recently just started again. 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: Reports: : 1 Para: 1 Psychiatric History: Reports: Anxiety, Depression Other Psychiatric History: doing well; has been off meds for over a year - Past Surgical History Musculoskeletal Surgical History: Reports: Other (See Below) Other Musculoskeletal Surgeries/Procedures:: broken arm age 8 Social & Family History - Family History Family Medical History: No Pertinent Family History - Tobacco Use Tobacco Use Status *Q: Current Every Day Tobacco User Years of Tobacco use: 5 Packs/Tins Daily: 0.1 - Caffeine Use Caffeine Use: Reports: None - Recreational Drug Use Recreational Drug Use: No - Living Situation & Occupation Living situation: Reports: Single Occupation: Employed ED ROS GENERAL - Review of Systems Review Of Systems: Comprehensive ROS is negative, except as noted in HPI. ED EXAM, GI/ABD - Physical Exam Exam: See Below Exam Limited By: No Limitations General Appearance: Alert, WD/WN, No Apparent Distress Respiratory/Chest: No Respiratory Distress, Lungs Clear, Normal Breath Sounds, No Accessory Muscle Use, Chest Non-Tender Cardiovascular: Normal Peripheral Pulses, Regular Rate, Rhythm, No Edema GI/Abdominal Exam: Normal Bowel Sounds, Soft, No Distention, No Mass, Rebound (to RLQ), Tender (in RLQ) Extremities: Normal Inspection, Normal Capillary Refill Neurological: Alert, Oriented, Normal Cognition, No Motor/Sensory Deficits Psychiatric: Normal Affect, Normal Mood Skin Exam: Warm, Dry, Intact, Normal Color, No Rash Course - Vital Signs Last Recorded V/S: Last Vital Signs Temp 99 F 10/16/20 17:20 Pulse 88 10/16/20 17:20 Resp 16 10/16/20 17:20 BP 133/84 10/16/20 17:20 Pulse Ox 97 10/16/20 17:20 - Orders/Labs/Meds Orders: Active Orders 24 hr Category Date Time Status Peripheral IV Care [RC] . DIRECTED Care 10/16/20 17:35 Ordered Abdomen Pelvis w Cont [CT] Stat Exams 10/16/20 18:03 Ordered Sodium Chloride 0.9% [Normal Saline] 100 ml Med 10/16/20 20:00 Active IV ASDIRECTED Sodium Chloride 0.9% [Saline Flush] Med 10/16/20 17:35 Ordered 10 ml FLUSH ASDIRECTED PRN Peripheral IV Insertion Adult [OM.PC] Routine Oth 10/16/20 17:35 Ordered Medication Orders Sodium Chloride (Normal Saline) 100 mls @ 60 drops/min IV ASDIRECTED LENIN Last Admin: 10/16/20 19:58 Dose: 60 drops/min Documented by: JENNIFFER Sodium Chloride (Saline Flush) 10 ml FLUSH ASDIRECTED PRN PRN Reason: Keep Vein Open Last Admin: 10/16/20 19:56 Dose: 10 ml Documented by: Admin: 10/16/20 17:53 Dose: 10 ml Documented by: KATHARINE Labs: Laboratory Tests 10/16/20 10/16/20 10/16/20 Range/Units 17:38 17:38 17:45 WBC 8.53 (3.98-10.04) K/mm3 RBC 4.55 (3.98-5.22) M/mm3 Hgb 13.7 (11.2-15.7) gm/dl Hct 40.4 (34.1-44.9) % MCV 88.8 D (79.4-94.8) fl MCH 30.1 (25.6-32.2) pg MCHC 33.9 (32.2-35.5) g/dl RDW Std Deviation 41.1 (36.4-46.3) fL Plt Count 343 (182-369) K/mm3 MPV 9.3 L (9.4-12.3) fl Neutrophils % (Manual) 65 H (40-60) % Band Neutrophils % 0 (0-10) % Lymphocytes % (Manual) 30 (20-40) % Atypical Lymphs % 0 % Monocytes % (Manual) 5 (2-10) % Eosinophils % (Manual) 0 L (0.7-5.8) % Basophils % (Manual) 0 L (0.1-1.2) Platelet Estimate Adequate RBC Morph Comment Normal Sodium (136-145) mEq/L Potassium (3.5-5.1) mEq/L Chloride (98-107) mEq/L Carbon Dioxide (21-32) mEq/L Anion Gap (5-15) BUN (7-18) mg/dL Creatinine (0.55-1.02) mg/dL Est Cr Clr Drug Dosing mL/min Estimated GFR (MDRD) (>60) mL/min BUN/Creatinine Ratio (14-18) Glucose (74-106) mg/dL Calcium (8.5-10.1) mg/dL Total Bilirubin (0.2-1.0) mg/dL AST (15-37) U/L ALT (14-59) U/L Alkaline Phosphatase (46-116) U/L C-Reactive Protein (<1.0) mg/dL Total Protein (6.4-8.2) g/dl Albumin (3.4-5.0) g/dl Globulin gm/dL Albumin/Globulin Ratio (1-2) Urine Color Yellow (Yellow) Urine Appearance Clear (Clear) Urine pH 6.0 (5.0-8.0) Ur Specific Lipscomb > or = 1.030 (1.005-1.030) Urine Protein Trace H (Negative) Urine Glucose (UA) Negative (Negative) Urine Ketones Negative (Negative) Urine Occult Blood Negative (Negative) Urine Nitrite Negative (Negative) Urine Bilirubin Negative (Negative) Urine Urobilinogen 0.2 (0.2-1.0) Ur Leukocyte Esterase Negative (Negative) Urine RBC 0-5 (0-5) /hpf Urine WBC 0-5 (0-5) /hpf Ur Squamous Epith Cells 0-5 (0-5) /hpf Urine Bacteria Few (FEW) /hpf Urine Mucus Few (FEW) /hpf Urine HCG, Qual Negative (NEGATIVE) 10/16/20 Range/Units 17:45 WBC (3.98-10.04) K/mm3 RBC (3.98-5.22) M/mm3 Hgb (11.2-15.7) gm/dl Hct (34.1-44.9) % MCV (79.4-94.8) fl MCH (25.6-32.2) pg MCHC (32.2-35.5) g/dl RDW Std Deviation (36.4-46.3) fL Plt Count (182-369) K/mm3 MPV (9.4-12.3) fl Neutrophils % (Manual) (40-60) % Band Neutrophils % (0-10) % Lymphocytes % (Manual) (20-40) % Atypical Lymphs % % Monocytes % (Manual) (2-10) % Eosinophils % (Manual) (0.7-5.8) % Basophils % (Manual) (0.1-1.2) Platelet Estimate RBC Morph Comment Sodium 141 (136-145) mEq/L Potassium 3.5 (3.5-5.1) mEq/L Chloride 105 (98-107) mEq/L Carbon Dioxide 27 (21-32) mEq/L Anion Gap 12.5 (5-15) BUN 10 (7-18) mg/dL Creatinine 0.9 (0.55-1.02) mg/dL Est Cr Clr Drug Dosing 80.42 mL/min Estimated GFR (MDRD) > 60 (>60) mL/min BUN/Creatinine Ratio 11.1 L (14-18) Glucose 93 (74-106) mg/dL Calcium 9.4 (8.5-10.1) mg/dL Total Bilirubin 0.3 (0.2-1.0) mg/dL AST 15 (15-37) U/L ALT 20 (14-59) U/L Alkaline Phosphatase 111 (46-116) U/L C-Reactive Protein 2.8 H* (<1.0) mg/dL Total Protein 7.3 (6.4-8.2) g/dl Albumin 3.3 L (3.4-5.0) g/dl Globulin 4.0 gm/dL Albumin/Globulin Ratio 0.8 L (1-2) Urine Color (Yellow) Urine Appearance (Clear) Urine pH (5.0-8.0) Ur Specific Lipscomb (1.005-1.030) Urine Protein (Negative) Urine Glucose (UA) (Negative) Urine Ketones (Negative) Urine Occult Blood (Negative) Urine Nitrite (Negative) Urine Bilirubin (Negative) Urine Urobilinogen (0.2-1.0) Ur Leukocyte Esterase (Negative) Urine RBC (0-5) /hpf Urine WBC (0-5) /hpf Ur Squamous Epith Cells (0-5) /hpf Urine Bacteria (FEW) /hpf Urine Mucus (FEW) /hpf Urine HCG, Qual (NEGATIVE) Meds: Medications Generic Name Dose Route Start Last Admin Trade Name Freq PRN Reason Stop Dose Admin Sodium Chloride 100 mls @ 60 drops/min 10/16/20 20:00 10/16/20 19:58 Normal Saline IV 60 drops/min ASDIRECTED LENIN Administration Sodium Chloride 10 ml 10/16/20 17:35 10/16/20 19:56 Saline Flush FLUSH 10 ml ASDIRECTED PRN Administration Keep Vein Open Discontinued Medications Generic Name Dose Route Start Last Admin Trade Name Freq PRN Reason Stop Dose Admin Diatrizoate Meglum/Diatrizoate Sod 60 ml 10/16/20 18:22 Gastrografin 37% PO 10/16/20 18:23 ONETIME ONE Iopamidol 100 ml 10/16/20 18:22 10/16/20 19:55 Isovue-300 (61%) IVPUSH 10/16/20 18:23 100 ml ONETIME ONE Administration Iopamidol 25 ml 10/16/20 18:23 Isovue-300 (61%) IVPUSH 10/16/20 18:24 ONETIME ONE - Re-Assessments/Exams Free Text/Narrative Re-Assessment/Exam: 10/16/20 17:41 Patient presents to the ED for her right sided abdomen pain. She notes that this has been going on for a few days. She is having some rebound tenderness and right lower quadrant tenderness, we will evaluate for possible , and get some other labs, and then decide about CT once the results have been obtained. 10/16/20 20:14 Labs are unremarkable, CT has been taken and is also unremarkable. Likely the patient could be having some abdomen pain due to a stress reaction, she notes this only really does hurt her get worse when she has increased stress. Departure - Departure Time of Disposition: 20:14 Disposition: Home, Self-Care 01 Condition: Good Clinical Impression: Right sided abdominal pain - Discharge Information *PRESCRIPTION DRUG MONITORING PROGRAM REVIEWED*: No *COPY OF PRESCRIPTION DRUG MONITORING REPORT IN PATIENT RENETTA: No Instructions: Abdominal Pain, Adult, [id number] Referrals: Gladys Addison ELECTROLYSIS NEEDLE OPERATOR [Primary Care Provider] - Forms: ED Department Discharge Additional Instructions: You were seen in this ER for your right-sided abdominal pain. Your laboratory evaluation was unremarkable, and your CT demonstrated no findings of appendicitis, or any ovarian cysts, or any other reason suggestive of why would be having right-sided abdomen pain. Although, sometimes stress can manifest itself differently in people, and you could be having some abdomen pain due to increased stress, as you note that the pain does seem to worsen when you do have increased stress in your life. I would try to decrease the stress in your life is much as possible, see if this does not help resolve some of the symptoms. If things do not seem to be getting better in a few days time, please follow-up with your primary care provider, for further evaluation and management of your abdomen pain. Please return to the ER at any time if symptoms change or worsen. Sepsis Event Note (ED) - Evaluation Sepsis Screening Result: No Definite Risk - Focused Exam Vital Signs: Vital Signs Temp Pulse Resp BP Pulse Ox 10/16/20 17:20 99 F 88 16 133/84 97 - My Orders Last 24 Hours: My Active Orders 10/16/20 17:35 Peripheral IV Care [RC] . DIRECTED Sodium Chloride 0.9% [Saline Flush] 10 ml FLUSH ASDIRECTED PRN Peripheral IV Insertion Adult [OM.PC] Routine 10/16/20 18:03 Abdomen Pelvis w Cont [CT] Stat 10/16/20 20:00 Sodium Chloride 0.9% [Normal Saline] 100 ml IV ASDIRECTED - Assessment/Plan Last 24 Hours: My Active Orders 10/16/20 17:35 Peripheral IV Care [RC] . DIRECTED Sodium Chloride 0.9% [Saline Flush] 10 ml FLUSH ASDIRECTED PRN Peripheral IV Insertion Adult [OM.PC] Routine 10/16/20 18:03 Abdomen Pelvis w Cont [CT] Stat 10/16/20 20:00 Sodium Chloride 0.9% [Normal Saline] 100 ml IV ASDIRECTED
[2020-10-16] MEDS: Sodium Chloride 0.9% 10 ML Syringe FLUSH PRN ×2 (17:53→19:56)
[2020-10-16] MEDS ORDERED: Diatrizoate Meglumine/Diatrizoate Sodium 37% 120 ML Bottle PO ONE (18:22)
[2020-10-16] MEDS ORDERED: Iopamidol 612 MG/ML 100 ML Bottle IVPUSH ONE (18:22)
[2020-10-16] MEDS ORDERED: Iopamidol 612 MG/ML 50 ML SDV IVPUSH ONE (18:23)
[2020-10-16] MEDS ORDERED: Sodium Chloride 0.9% 100 ML IV SCH (20:00)
--- NOTE | 2020-10-17 09:46 | CT ---
CT abdomen and pelvis Technique: Multiple axial sections were obtained from above the dome of the diaphragm inferiorly through the pubic symphysis. Intravenous contrast and oral contrast has been given. Delayed images were also obtained through the abdomen and pelvis. Comparison: No prior abdominal imaging is available. Visualized lung bases show nothing acute. Liver shows no focal parenchymal abnormality. Adrenal glands show no nodule. Pancreas is within normal limits. Kidneys show symmetric contrast enhancement. Delayed images show contrast excretion into the collecting systems which show no filling defects. Normal contrast is scattered throughout both ureters. Aorta shows no aneurysm. Gallbladder is mostly collapsed but shows no definite calcifications. No retroperitoneal adenopathy or mesenteric abnormalities are appreciated. No pelvic mass or adenopathy is appreciated. Mild increased stool is seen within portions of the colon. No inflammatory change or free fluid is identified. Appendix is seen which shows no abnormality. Bone window settings were reviewed. No acute osseous abnormality is appreciated. Impression: 1. Slight increased stool within the colon. 2. Nothing acute is appreciated on CT study of the abdomen and pelvis. Diagnostic code #2
== END 2020-10-16 20:25 | disposition home or self-care (01) ==
LOC: JD.ED 17:09
DX: R10.31 Right lower quadrant pain (principal); Z72.0 Tobacco use
CPT/HCPCS: 36415; 74177; 80053; 81001; 81025; 85007; 85027; 86140; 99284; Q9963; Q9967

== ENCOUNTER 2021-09-18 23:08 | Day surgery (SDC) | payer MEDICAID ==
--- NOTE | 2021-09-18 23:41 | EDM.PDOC ---
ED HPI GENERAL MEDICAL PROBLEM - General Chief Complaint: Abdominal Pain Stated Complaint: ABDOMINAL PAIN/ BACK PAIN Time Seen by Provider: 09/18/21 23:35 - History of Present Illness INITIAL COMMENTS - FREE TEXT/NARRATIVE: 26-year-old female presents the emergency room with abdominal pain. This pain basically started a day and a half ago. Seem to be in the lower abdomen. Patient developed some nausea and vomiting around 9:00 tonight. Also the patient tried to slip on the ice and fall earlier today but she was able to catch herself and developed some back discomfort after this. Patient still has her appendix she is unsure if she is . She is developed some nausea and vomiting that started this evening. Denies history of abdominal surgery Lower Abdomen Pain Score (Numeric/FACES): 7 - Related Data Allergies Allergy/AdvReac Type Severity Reaction Status Date / Time No Known Allergies Allergy Verified 09/18/21 23:22 Home Meds: Home Meds Ranitidine [Zantac] 150 mg PO DAILY PRN 07/27/19 [History] Sertraline [Zoloft] 50 mg PO DAILY 07/27/19 [History] cloNIDine HCL [Catapres] 0.1 mg PO DAILY 07/27/19 [History] norgestimate-ethinyl estradioL [Estarylla 0.25-0.035 mg Tablet] 1 tab PO DAILY 07/27/19 [History] Levothyroxine 75 mcg PO ACBREAKFAST 09/18/21 [History] oxyCODONE 5 mg PO Q4H PRN #15 tab 09/19/21 [Rx] Past Medical History - Past Health History Medical/Surgical History: Denies Medical/Surgical History Gastrointestinal History: Reports: GERD 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: Psychiatric History: Reports: Anxiety, Depression Other Psychiatric History: doing well; has been off meds for over a year Endocrine/Metabolic History: Reports: Hypothyroidism - Past Surgical History Musculoskeletal Surgical History: Reports: Other (See Below) Other Musculoskeletal Surgeries/Procedures:: broken arm age 8 Social & Family History - Family History Family Medical History: No Pertinent Family History - Tobacco Use Tobacco Use Status *Q: Never Tobacco User Second Hand Smoke Exposure: No - Caffeine Use Caffeine Use: Reports: Coffee - Recreational Drug Use Recreational Drug Use: No - Living Situation & Occupation Living situation: Reports: Single Occupation: Employed ED ROS GENERAL - Review of Systems Review Of Systems: See Below Constitutional: Reports: No Symptoms HEENT: Reports: No Symptoms Respiratory: Reports: No Symptoms Cardiovascular: Reports: No Symptoms Endocrine: Reports: No Symptoms GI/Abdominal: Reports: Abdominal Pain, Nausea, Vomiting. Denies: No Symptoms, Diarrhea : Reports: No Symptoms Musculoskeletal: Reports: Back Pain Skin: Reports: No Symptoms Neurological: Reports: No Symptoms ED EXAM, GENERAL - Physical Exam Exam: See Below General Appearance: Alert, No Apparent Distress, Obese Head: Atraumatic, Normocephalic Neck: Normal Inspection, Supple, Non-Tender, Full Range of Motion Respiratory/Chest: No Respiratory Distress, Lungs Clear, Normal Breath Sounds Cardiovascular: Regular Rate, Rhythm, No Edema, No Rub GI/Abdominal: Normal Bowel Sounds, No Mass, Rebound, Tender (Sniffing and lower quadrant tenderness bilaterally worse on the right compared to the left rebound tenderness shooting to the right lower quadrant noted) Back Exam: Normal Inspection, CVA Tenderness (R) (Mild). No: CVA Tenderness (L) Course - Vital Signs Last Recorded V/S: Last Vital Signs Temp 36.4 C 09/19/21 07:05 Pulse 100 09/18/21 23:19 Resp 16 09/19/21 07:35 BP 113/75 09/19/21 07:35 Pulse Ox 94 L 09/19/21 07:40 - Orders/Labs/Meds Orders: Active Orders 24 hr Category Date Time Status Patient Status [ADT] Routine ADT 09/19/21 04:23 Active Communication Order [RC] ROUTINE Care 09/19/21 06:24 Active Cooling Warming Measures [RC] ASDIRECTED Care 09/19/21 06:24 Active Notify Provider [RC] ASDIRECTED Care 09/19/21 06:24 Active Oxygen Therapy [RC] ASDIRECTED Care 09/19/21 06:24 Active Pulse Oximetry [RC] ASDIRECTED Care 09/19/21 06:24 Active RT Aerosol Therapy [RC] ASDIRECTED Care 09/19/21 06:25 Active Ready for Discharge [RC] PER UNIT ROUTINE Care 09/19/21 06:55 Active Vital Signs [RC] Q15M Care 09/19/21 06:24 Active Albuterol [Proventil Neb Soln] Med 09/19/21 06:24 Active 2.5 mg NEB ONETIME PRN HYDROmorphone [Dilaudid] Med 09/19/21 06:24 Active 0.5 mg IVPUSH Q10M PRN Midazolam [Versed 1 MG/ML] Med 09/19/21 06:24 Active 2 mg IVPUSH ONETIME PRN Ondansetron [Zofran] Med 09/19/21 06:24 Active 4 mg IVPUSH ONETIME PRN Phenylephrine HCl In 0.9% NaCl [Phenylephrine 1 MG/10 Med 09/19/21 06:24 Active ML-NS] 0.1 mg IVPUSH Q10M PRN diphenhydrAMINE [Benadryl] Med 09/19/21 06:24 Active 25 mg IVPUSH Q6H PRN ePHEDrine [ePHEDrine sulfate] Med 09/19/21 06:24 Active 5 mg IVPUSH ASDIRECTED PRN fentaNYL [Sublimaze] Med 09/19/21 06:24 Active 50 mcg IVPUSH Q20M PRN Schedule Procedure [COMM] Routine Oth 09/19/21 03:00 Ordered Medication Orders Albuterol (Albuterol 0.083% 2.5 Mg/3 Ml Neb Soln) 2.5 mg NEB ONETIME PRN PRN Reason: improve oxygenation Diphenhydramine HCl (Diphenhydramine 50 Mg/Ml Sdv) 25 mg IVPUSH Q6H PRN PRN Reason: pruritis Ephedrine Sulfate (Ephedrine 50 Mg/Ml Sdv) 5 mg IVPUSH ASDIRECTED PRN PRN Reason: Hypotension Fentanyl (Fentanyl 100 Mcg/2 Ml Sdv) 50 mcg IVPUSH Q20M PRN PRN Reason: Pain Hydromorphone HCl (Hydromorphone 0.5 Mg/0.5 Ml Syringe) 0.5 mg IVPUSH Q10M PRN PRN Reason: Pain (severe 7-10) Midazolam HCl (Midazolam 1 Mg/Ml 2 Ml Sdv) 2 mg IVPUSH ONETIME PRN PRN Reason: Sedation Miscellaneous Medication (Phenylephrine Hcl In 0.9% Nacl 1 Mg/10 Ml Syringe) 0.1 mg IVPUSH Q10M PRN PRN Reason: Hypotension Ondansetron HCl (Ondansetron 4 Mg/2 Ml Sdv) 4 mg IVPUSH ONETIME PRN PRN Reason: Nausea/Vomiting Labs: Laboratory Tests 09/18/21 09/18/21 09/18/21 Range/Units 23:47 23:55 23:55 WBC 13.27 H (3.98-10.04) K/mm3 RBC 4.93 (3.98-5.22) M/mm3 Hgb 14.6 (11.2-15.7) gm/dl Hct 43.2 (34.1-44.9) % MCV 87.6 (79.4-94.8) fl MCH 29.6 (25.6-32.2) pg MCHC 33.8 (32.2-35.5) g/dl RDW Std Deviation 43.0 (36.4-46.3) fL Plt Count 342 (182-369) K/mm3 MPV 9.5 (9.4-12.3) fl Neut % (Auto) 81.4 H (34.0-71.1) % Lymph % (Auto) 12.7 L (19.3-51.7) % [place] % (Auto) 5.3 (4.7-12.5) % Eos % (Auto) 0.2 L (0.7-5.8) Baso % (Auto) 0.2 (0.1-1.2) % Neut # (Auto) 10.82 H (1.56-6.13) K/mm3 Lymph # (Auto) 1.69 (1.18-3.74) K/mm3 [place] # (Auto) 0.70 H (0.24-0.36) K/mm3 Eos # (Auto) 0.02 L (0.04-0.36) K/mm3 Baso # (Auto) 0.02 (0.01-0.08) K/mm3 Sodium 140 (136-145) mEq/L Potassium 4.1 (3.5-5.1) mEq/L Chloride 102 (98-107) mEq/L Carbon Dioxide 26 (21-32) mEq/L Anion Gap 16.1 H (5-15) BUN 13 (7-18) mg/dL Creatinine 0.9 (0.55-1.02) mg/dL Est Cr Clr Drug Dosing TNP Estimated GFR (MDRD) > 60 (>60) mL/min BUN/Creatinine Ratio 14.4 (14-18) Glucose 107 H (70-99) mg/dL Calcium 9.3 (8.5-10.1) mg/dL Total Bilirubin 0.5 (0.2-1.0) mg/dL AST 12 L (15-37) U/L ALT 25 (14-59) U/L Alkaline Phosphatase 97 (46-116) U/L Total Protein 7.7 (6.4-8.2) g/dl Albumin 3.7 (3.4-5.0) g/dl Globulin 4.0 gm/dL Albumin/Globulin Ratio 0.9 L (1-2) Lipase 104 (73-393) U/L HCG, Qual (NEGATIVE) Urine Color Yellow (Yellow) Urine Appearance Slt cloudy H (Clear) Urine pH 5.5 (5.0-8.0) Ur Specific [place] > or = 1.030 (1.005-1.030) Urine Protein Negative (Negative) Urine Glucose (UA) Negative (Negative) Urine Ketones 1+ H (Negative) Urine Occult Blood 2+ H (Negative) Urine Nitrite Negative (Negative) Urine Bilirubin 1+ H (Negative) Urine Urobilinogen 0.2 (0.2-1.0) Ur Leukocyte Esterase Negative (Negative) Urine RBC 0-5 (0-5) /hpf Urine WBC 0-5 (0-5) /hpf Ur Squamous Epith Cells 0-5 (0-5) /hpf Urine Bacteria Few (FEW) /hpf Urine Mucus Many H (FEW) /hpf Influenza Type A RNA (NEGATIVE) Influenza Type B RNA (NEGATIVE) SARS-CoV-2 RNA (AMRITA) (NEGATIVE) 09/18/21 09/19/21 Range/Units 23:55 02:27 WBC (3.98-10.04) K/mm3 RBC (3.98-5.22) M/mm3 Hgb (11.2-15.7) gm/dl Hct (34.1-44.9) % MCV (79.4-94.8) fl MCH (25.6-32.2) pg MCHC (32.2-35.5) g/dl RDW Std Deviation (36.4-46.3) fL Plt Count (182-369) K/mm3 MPV (9.4-12.3) fl Neut % (Auto) (34.0-71.1) % Lymph % (Auto) (19.3-51.7) % [place] % (Auto) (4.7-12.5) % Eos % (Auto) (0.7-5.8) Baso % (Auto) (0.1-1.2) % Neut # (Auto) (1.56-6.13) K/mm3 Lymph # (Auto) (1.18-3.74) K/mm3 [place] # (Auto) (0.24-0.36) K/mm3 Eos # (Auto) (0.04-0.36) K/mm3 Baso # (Auto) (0.01-0.08) K/mm3 Sodium (136-145) mEq/L Potassium (3.5-5.1) mEq/L Chloride (98-107) mEq/L Carbon Dioxide (21-32) mEq/L Anion Gap (5-15) BUN (7-18) mg/dL Creatinine (0.55-1.02) mg/dL Est Cr Clr Drug Dosing Estimated GFR (MDRD) (>60) mL/min BUN/Creatinine Ratio (14-18) Glucose (70-99) mg/dL Calcium (8.5-10.1) mg/dL Total Bilirubin (0.2-1.0) mg/dL AST (15-37) U/L ALT (14-59) U/L Alkaline Phosphatase (46-116) U/L Total Protein (6.4-8.2) g/dl Albumin (3.4-5.0) g/dl Globulin gm/dL Albumin/Globulin Ratio (1-2) Lipase (73-393) U/L HCG, Qual Negative (NEGATIVE) Urine Color (Yellow) Urine Appearance (Clear) Urine pH (5.0-8.0) Ur Specific [place] (1.005-1.030) Urine Protein (Negative) Urine Glucose (UA) (Negative) Urine Ketones (Negative) Urine Occult Blood (Negative) Urine Nitrite (Negative) Urine Bilirubin (Negative) Urine Urobilinogen (0.2-1.0) Ur Leukocyte Esterase (Negative) Urine RBC (0-5) /hpf Urine WBC (0-5) /hpf Ur Squamous Epith Cells (0-5) /hpf Urine Bacteria (FEW) /hpf Urine Mucus (FEW) /hpf Influenza Type A RNA Negative (NEGATIVE) Influenza Type B RNA Negative (NEGATIVE) SARS-CoV-2 RNA (AMRITA) Negative (NEGATIVE) Meds: Medications Generic Name Dose Route Start Last Admin Trade Name Lori PRN Reason Stop Dose Admin Albuterol 2.5 mg 09/19/21 06:24 Albuterol 0.083% 2.5 Mg/3 Ml Neb Soln NEB ONETIME PRN improve oxygenation Diphenhydramine HCl 25 mg 09/19/21 06:24 Diphenhydramine 50 Mg/Ml Sdv IVPUSH Q6H PRN pruritis Ephedrine Sulfate 5 mg 09/19/21 06:24 Ephedrine 50 Mg/Ml Sdv IVPUSH ASDIRECTED PRN Hypotension Fentanyl 50 mcg 09/19/21 06:24 Fentanyl 100 Mcg/2 Ml Sdv IVPUSH Q20M PRN Pain Hydromorphone HCl 0.5 mg 09/19/21 06:24 Hydromorphone 0.5 Mg/0.5 Ml Syringe IVPUSH Q10M PRN Pain (severe 7-10) Midazolam HCl 2 mg 09/19/21 06:24 Midazolam 1 Mg/Ml 2 Ml Sdv IVPUSH ONETIME PRN Sedation Miscellaneous Medication 0.1 mg 09/19/21 06:24 Phenylephrine Hcl In 0.9% Nacl 1 Mg/10 Ml Syringe IVPUSH Q10M PRN Hypotension Ondansetron HCl 4 mg 09/19/21 06:24 Ondansetron 4 Mg/2 Ml Sdv IVPUSH ONETIME PRN Nausea/Vomiting Discontinued Medications Generic Name Dose Route Start Last Admin Trade Name Lori PRN Reason Stop Dose Admin Bupivacaine HCl Confirm 09/19/21 03:23 Bupivacaine 0.5% 30 Ml Sdv Administered 09/19/21 03:24 Dose 30 ml .ROUTE .STK-MED ONE Dexamethasone Confirm 09/19/21 04:25 Dexamethasone 4 Mg/Ml 5 Ml Mdv Administered 09/19/21 04:26 Dose 20 mg .ROUTE .STK-MED ONE Diatrizoate Meglum/Diatrizoate Sod 120 ml 09/19/21 02:09 09/19/21 02:10 Diatrizoate Meglumine/Diatrizoate Sodium 37% 120 Ml Bottle PO 09/19/21 02:10 120 ml ONETIME ONE Administration Fentanyl Confirm 09/19/21 04:26 Fentanyl 250 Mcg/5 Ml Sdv Administered 09/19/21 04:27 Dose 250 mcg .ROUTE .STK-MED ONE Glycopyrrolate Confirm 09/19/21 06:37 Glycopyrrolate 0.2 Mg/Ml 2 Ml Syringe Administered 09/19/21 06:38 Dose 0.4 mg .ROUTE .STK-MED ONE Glycopyrrolate Confirm 09/19/21 06:37 Glycopyrrolate 0.2 Mg/Ml 2 Ml Syringe Administered 09/19/21 06:38 Dose 0.4 mg .ROUTE .STK-MED ONE Hydromorphone HCl Confirm 09/19/21 06:20 Hydromorphone 0.5 Mg/0.5 Ml Syringe Administered 09/19/21 06:21 Dose 0.5 mg .ROUTE .STK-MED ONE Lactated Ringer's 1,000 mls @ 999 mls/hr 09/19/21 00:56 09/19/21 01:17 Ringers, Lactated IV 09/19/21 01:56 999 mls/hr .BOLUS ONE Administration Cefoxitin Sodium 2 gm/ Premix 50 mls @ 100 mls/hr 09/19/21 03:00 09/19/21 05:06 IV 09/19/21 03:29 100 mls/hr ONETIME ONE Administration Lactated Ringer's Confirm 09/19/21 04:25 Ringers, Lactated Administered 09/19/21 04:26 Dose 1,000 mls @ as directed .ROUTE .STK-MED ONE Lactated Ringer's Confirm 09/19/21 06:13 Ringers, Lactated Administered 09/19/21 06:14 Dose 1,000 mls @ as directed .ROUTE .STK-MED ONE Iopamidol 100 ml 09/19/21 02:09 09/19/21 02:10 Iopamidol 612 Mg/Ml 100 Ml Bottle IVPUSH 09/19/21 02:10 100 ml ONETIME ONE Administration Ketorolac Tromethamine Confirm 09/19/21 04:25 Ketorolac 30 Mg/Ml Sdv Administered 09/19/21 04:26 Dose 30 mg .ROUTE .STK-MED ONE Midazolam HCl Confirm 09/19/21 04:25 Midazolam 1 Mg/Ml 2 Ml Sdv Administered 09/19/21 04:26 Dose 2 mg .ROUTE .STK-MED ONE Miscellaneous Medication Confirm 09/19/21 06:21 Phenylephrine Hcl In 0.9% Nacl 1 Mg/10 Ml Syringe Administered 09/19/21 06:22 Dose 1 mg .ROUTE .STK-MED ONE Neostigmine Methylsulfate Confirm 09/19/21 06:37 Neostigmine Methylsulfate 5 Mg/5 Ml Syringe Administered 09/19/21 06:38 Dose 5 mg .ROUTE .STK-MED ONE Ondansetron HCl Confirm 09/19/21 04:25 Ondansetron 4 Mg/2 Ml Sdv Administered 09/19/21 04:26 Dose 4 mg .ROUTE .STK-MED ONE Propofol Confirm 09/19/21 04:26 Propofol 200 Mg/20 Ml Sdv Administered 09/19/21 04:27 Dose 200 mg .ROUTE .STK-MED ONE Rocuronium [place] Confirm 09/19/21 04:28 Rocuronium 50 Mg/5 Ml Vial Administered 09/19/21 04:29 Dose 50 mg .ROUTE .STK-MED ONE Sodium Chloride 10 ml 09/19/21 02:09 09/19/21 02:10 Sodium Chloride 0.9% 10 Ml Sdv FLUSH 09/19/21 02:10 10 ml ONETIME ONE Administration Sugammadex Sodium Confirm 09/19/21 06:44 Sugammadex Sodium 500 Mg/5 Ml Vial Administered 09/19/21 06:45 Dose 500 mg .ROUTE .STK-MED ONE - Re-Assessments/Exams Free Text/Narrative Re-Assessment/Exam: 09/19/21 08:25 CT did show early acute appendicitis after appropriate laboratory evaluation. Case was discussed with Dr. Hill who assumed care at approximately 05:00 Departure - Departure Time of Disposition: 05:50 Disposition: Home, Self-Care 01 Clinical Impression: Acute appendicitis - Discharge Information Sepsis Event Note (ED) - Evaluation Sepsis Screening Result: No Definite Risk - Focused Exam Vital Signs: Vital Signs Temp Pulse Resp BP Pulse Ox Pulse Ox 09/19/21 07:40 94 L 09/19/21 07:35 16 113/75 97 09/19/21 07:20 15 111/70 99 09/19/21 07:05 36.4 C 17 107/61 96 96 09/18/21 23:19 36.5 C 100 20 114/77 98
[2021-09-19] MEDS ORDERED: Lactated Ringers 1,000 ML IV ONE (00:56)
[2021-09-19] MEDS ORDERED: Iopamidol 612 MG/ML 100 ML Bottle IVPUSH ONE (02:09)
[2021-09-19] MEDS ORDERED: Diatrizoate Meglumine/Diatrizoate Sodium 37% 120 ML Bottle PO ONE (02:09)
[2021-09-19] MEDS ORDERED: Sodium Chloride 0.9% 10 ML SDV FLUSH ONE (02:09)
[2021-09-19] MEDS ORDERED: Succinylcholine/Sod PF 100 MG/5 ML SYRINGE IV ONE (02:56)
[2021-09-19] MEDS ORDERED: cefOXitin 2 GM in Premix Bag 1 BAG IV ONE (03:00)
--- NOTE | 2021-09-19 03:03 | PCM.HP.2 ---
H&P History of Present Illness - General Date of Service: 09/19/21 Source of Information: Patient History Limitations: Reports: No Limitations - History of Present Illness Initial Comments - Free Text/Narative: Ms. Gamboa is a 26 yo woman with obesity, hypothyroidism and anxiety who presents with abdominal pain that began last night. She has never had such pain. It is severe right lower quadrant pain. She has leukocytosis and evidence of early inflammatory changes of the appendix on CT scan. Lower Abdomen Pain Score (Numeric/FACES): 7 - Related Data Allergies/Adverse Reactions: Allergies Allergy/AdvReac Type Severity Reaction Status Date / Time No Known Allergies Allergy Verified 09/18/21 23:22 Home Medications: Home Meds Ranitidine [Zantac] 150 mg PO DAILY PRN 07/27/19 [History] Sertraline [Zoloft] 50 mg PO DAILY 07/27/19 [History] cloNIDine HCL [Catapres] 0.1 mg PO DAILY 07/27/19 [History] norgestimate-ethinyl estradioL [Estarylla 0.25-0.035 mg Tablet] 1 tab PO DAILY 07/27/19 [History] Levothyroxine 75 mcg PO ACBREAKFAST 09/18/21 [History] Past Medical History - Past Health History Medical/Surgical History: Denies Medical/Surgical History Gastrointestinal History: Reports: GERD 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: Psychiatric History: Reports: Anxiety, Depression Other Psychiatric History: doing well; has been off meds for over a year Endocrine/Metabolic History: Reports: Hypothyroidism - Past Surgical History Musculoskeletal Surgical History: Reports: Other (See Below) Other Musculoskeletal Surgeries/Procedures:: broken arm age 8 Social & Family History - Family History Family Medical History: No Pertinent Family History - Tobacco Use Tobacco Use Status *Q: Never Tobacco User Second Hand Smoke Exposure: No - Caffeine Use Caffeine Use: Reports: Coffee - Recreational Drug Use Recreational Drug Use: No - Living Situation & Occupation Living situation: Reports: Single Occupation: Employed H&P Review of Systems - Review of Systems: Review Of Systems: See Below General: Reports: Malaise HEENT: Reports: No Symptoms Pulmonary: Reports: No Symptoms Cardiovascular: Reports: No Symptoms Gastrointestinal: Reports: Abdominal Pain, Vomiting Genitourinary: Reports: No Symptoms Musculoskeletal: Reports: No Symptoms Skin: Reports: No Symptoms Psychiatric: Reports: No Symptoms Neurological: Reports: No Symptoms Hematologic/Lymphatic: Reports: No Symptoms Immunologic: Reports: No Symptoms Exam - Exam Exam: See Below - Vital Signs Vital Signs: Last Vital Signs Temp 36.5 C 09/18/21 23:19 Pulse 100 09/18/21 23:19 Resp 20 09/18/21 23:19 BP 114/77 09/18/21 23:19 Pulse Ox 98 09/18/21 23:19 Weight: 104.644 kg - Exam General: Alert, Oriented HEENT: Conjunctiva Clear Neck: Supple Lungs: Normal Respiratory Effort Cardiovascular: Regular Rate GI/Abdominal Exam: Soft, Tender Extremities: Normal Inspection Skin: Warm, Dry Psychiatric: Normal Mood - Patient Data Lab Results Last 24 hrs: Laboratory Results - last 24 hr 09/18/21 09/18/21 09/18/21 Range/Units 23:47 23:55 23:55 WBC 13.27 H (3.98-10.04) K/mm3 RBC 4.93 (3.98-5.22) M/mm3 Hgb 14.6 (11.2-15.7) gm/dl Hct 43.2 (34.1-44.9) % MCV 87.6 (79.4-94.8) fl MCH 29.6 (25.6-32.2) pg MCHC 33.8 (32.2-35.5) g/dl RDW Std Deviation 43.0 (36.4-46.3) fL Plt Count 342 (182-369) K/mm3 MPV 9.5 (9.4-12.3) fl Neut % (Auto) 81.4 H (34.0-71.1) % Lymph % (Auto) 12.7 L (19.3-51.7) % [place] % (Auto) 5.3 (4.7-12.5) % Eos % (Auto) 0.2 L (0.7-5.8) Baso % (Auto) 0.2 (0.1-1.2) % Neut # (Auto) 10.82 H (1.56-6.13) K/mm3 Lymph # (Auto) 1.69 (1.18-3.74) K/mm3 Wise # (Auto) 0.70 H (0.24-0.36) K/mm3 Eos # (Auto) 0.02 L (0.04-0.36) K/mm3 Baso # (Auto) 0.02 (0.01-0.08) K/mm3 Sodium 140 (136-145) mEq/L Potassium 4.1 (3.5-5.1) mEq/L Chloride 102 (98-107) mEq/L Carbon Dioxide 26 (21-32) mEq/L Anion Gap 16.1 H (5-15) BUN 13 (7-18) mg/dL Creatinine 0.9 (0.55-1.02) mg/dL Est Cr Clr Drug Dosing TNP Estimated GFR (MDRD) > 60 (>60) mL/min BUN/Creatinine Ratio 14.4 (14-18) Glucose 107 H (70-99) mg/dL Calcium 9.3 (8.5-10.1) mg/dL Total Bilirubin 0.5 (0.2-1.0) mg/dL AST 12 L (15-37) U/L ALT 25 (14-59) U/L Alkaline Phosphatase 97 (46-116) U/L Total Protein 7.7 (6.4-8.2) g/dl Albumin 3.7 (3.4-5.0) g/dl Globulin 4.0 gm/dL Albumin/Globulin Ratio 0.9 L (1-2) Lipase 104 (73-393) U/L HCG, Qual (NEGATIVE) Urine Color Yellow (Yellow) Urine Appearance Slt cloudy H (Clear) Urine pH 5.5 (5.0-8.0) Ur Specific [place] > or = 1.030 (1.005-1.030) Urine Protein Negative (Negative) Urine Glucose (UA) Negative (Negative) Urine Ketones 1+ H (Negative) Urine Occult Blood 2+ H (Negative) Urine Nitrite Negative (Negative) Urine Bilirubin 1+ H (Negative) Urine Urobilinogen 0.2 (0.2-1.0) Ur Leukocyte Esterase Negative (Negative) Urine RBC 0-5 (0-5) /hpf Urine WBC 0-5 (0-5) /hpf Ur Squamous Epith Cells 0-5 (0-5) /hpf Urine Bacteria Few (FEW) /hpf Urine Mucus Many H (FEW) /hpf 09/18/ Range/Units 23:55 WBC (3.98-10.04) K/mm3 RBC (3.98-5.22) M/mm3 Hgb (11.2-15.7) gm/dl Hct (34.1-44.9) % MCV (79.4-94.8) fl MCH (25.6-32.2) pg MCHC (32.2-35.5) g/dl RDW Std Deviation (36.4-46.3) fL Plt Count (182-369) K/mm3 MPV (9.4-12.3) fl Neut % (Auto) (34.0-71.1) % Lymph % (Auto) (19.3-51.7) % Wise % (Auto) (4.7-12.5) % Eos % (Auto) (0.7-5.8) Baso % (Auto) (0.1-1.2) % Neut # (Auto) (1.56-6.13) K/mm3 Lymph # (Auto) (1.18-3.74) K/mm3 Wise # (Auto) (0.24-0.36) K/mm3 Eos # (Auto) (0.04-0.36) K/mm3 Baso # (Auto) (0.01-0.08) K/mm3 Sodium (136-145) mEq/L Potassium (3.5-5.1) mEq/L Chloride (98-107) mEq/L Carbon Dioxide (21-32) mEq/L Anion Gap (5-15) BUN (7-18) mg/dL Creatinine (0.55-1.02) mg/dL Est Cr Clr Drug Dosing Estimated GFR (MDRD) (>60) mL/min BUN/Creatinine Ratio (14-18) Glucose (70-99) mg/dL Calcium (8.5-10.1) mg/dL Total Bilirubin (0.2-1.0) mg/dL AST (15-37) U/L ALT (14-59) U/L Alkaline Phosphatase (46-116) U/L Total Protein (6.4-8.2) g/dl Albumin (3.4-5.0) g/dl Globulin gm/dL Albumin/Globulin Ratio (1-2) Lipase (73-393) U/L HCG, Qual Negative (NEGATIVE) Urine Color (Yellow) Urine Appearance (Clear) Urine pH (5.0-8.0) Ur Specific [place] (1.005-1.030) Urine Protein (Negative) Urine Glucose (UA) (Negative) Urine Ketones (Negative) Urine Occult Blood (Negative) Urine Nitrite (Negative) Urine Bilirubin (Negative) Urine Urobilinogen (0.2-1.0) Ur Leukocyte Esterase (Negative) Urine RBC (0-5) /hpf Urine WBC (0-5) /hpf Ur Squamous Epith Cells (0-5) /hpf Urine Bacteria (FEW) /hpf Urine Mucus (FEW) /hpf Result Diagrams: 09/18/21 23:55 09/18/21 23:55 Sepsis Event Note - Evaluation Sepsis Screening Result: No Definite Risk - Focused Exam Vital Signs: Vital Signs Temp Pulse Resp BP Pulse Ox 09/18/21 23:19 36.5 C 100 20 114/77 98 Problem List Initiated/Reviewed/Updated: Yes Orders Last 24hrs: Active Orders 24 hr Category Date Time Status Abdomen Pelvis w Cont [CT] Stat Exams 09/19/21 00:50 Taken COVID-19/FLU A+B [MOLEC] Stat Lab 09/19/21 02:27 Received cefOXitin [Mefoxin in Dextrose,Iso-Osm 2 GM/50 ML] 2 gm Med 09/19/21 03:00 Ordered Premix Bag 1 bag IV ONETIME Schedule Procedure [COMM] Routine Oth 09/19/21 03:00 Ordered Medication Orders Cefoxitin Sodium 2 gm/ Premix 50 mls @ 100 mls/hr IV ONETIME ONE Stop: 09/19/21 03:29 Assessment/Plan Comment:: acute appendicitis, plan for laparoscopic appendectomy - Mortality Measure Prognosis:: Good
--- NOTE | 2021-09-19 03:06 | PCM.PREANE ---
Preanesthetic Assessment - Procedure Proposed Procedure: Laparoscopic Appendectomy - Anesthesia/Transfusion/Family Hx Anesthesia History: No Prior Anesthesia Family History of Anesthesia Reaction: No Transfusion History: No Prior Transfusion(s) Intubation History: Unknown - Review of Systems General: No Symptoms Pulmonary: No Symptoms Cardiovascular: No Symptoms, Dyspnea on Exertion Gastrointestinal: No Symptoms (GERD), Abdominal Pain, Diarrhea, Nausea, Vomiting Neurological: No Symptoms (chronic back pain) Other: Reports: None, Easy Bruising, Thyroid Problems (Hypothyroid), Depression, Anxiety - Physical Assessment NPO Status Date: 09/19/21 NPO Status Time: 02:10 (oral contrast) Vital Signs: Last Vital Signs Temp 36.5 C 09/18/21 23:19 Pulse 100 09/18/21 23:19 Resp 20 09/18/21 23:19 BP 114/77 09/18/21 23:19 Pulse Ox 98 09/18/21 23:19 Height: 1.6 m Weight: 104.644 kg ASA Class: 3E Mental Status: Alert & Oriented x3 Airway Class: Mallampati = 2 Dentition: Reports: Normal Dentition, Caries Thyro-Mental Finger Breadths: 3 Mouth Opening Finger Breadths: 3 ROM/Head Extension: Full Lungs: Clear to Auscultation, Normal Respiratory Effort Cardiovascular: Regular Rate, Regular Rhythm, No Murmurs - Lab Values: Laboratory Last Values WBC 13.27 K/mm3 (3.98-10.04) H 09/18/21 23:55 RBC 4.93 M/mm3 (3.98-5.22) 09/18/21 23:55 Hgb 14.6 gm/dl (11.2-15.7) 09/18/21 23:55 Hct 43.2 % (34.1-44.9) 09/18/21 23:55 MCV 87.6 fl (79.4-94.8) 09/18/21 23:55 MCH 29.6 pg (25.6-32.2) 09/18/21 23:55 MCHC 33.8 g/dl (32.2-35.5) 09/18/21 23:55 RDW Std Deviation 43.0 fL (36.4-46.3) 09/18/21 23:55 Plt Count 342 K/mm3 (182-369) 09/18/21 23:55 MPV 9.5 fl (9.4-12.3) 09/18/21 23:55 Neut % (Auto) 81.4 % (34.0-71.1) H 09/18/21 23:55 Lymph % (Auto) 12.7 % (19.3-51.7) L 09/18/21 23:55 Vermilion % (Auto) 5.3 % (4.7-12.5) 09/18/21 23:55 Eos % (Auto) 0.2 (0.7-5.8) L 09/18/21 23:55 Baso % (Auto) 0.2 % (0.1-1.2) 09/18/21 23:55 Neut # (Auto) 10.82 K/mm3 (1.56-6.13) H 09/18/21 23:55 Lymph # (Auto) 1.69 K/mm3 (1.18-3.74) 09/18/21 23:55 Vermilion # (Auto) 0.70 K/mm3 (0.24-0.36) H 09/18/21 23:55 Eos # (Auto) 0.02 K/mm3 (0.04-0.36) L 09/18/21 23:55 Baso # (Auto) 0.02 K/mm3 (0.01-0.08) 09/18/21 23:55 Sodium 140 mEq/L (136-145) 09/18/21 23:55 Potassium 4.1 mEq/L (3.5-5.1) 09/18/21 23:55 Chloride 102 mEq/L (98-107) 09/18/21 23:55 Carbon Dioxide 26 mEq/L (21-32) 09/18/21 23:55 Anion Gap 16.1 (5-15) H 09/18/21 23:55 BUN 13 mg/dL (7-18) 09/18/21 23:55 Creatinine 0.9 mg/dL (0.55-1.02) 09/18/21 23:55 Est Cr Clr Drug Dosing TNP 09/18/21 23:55 Estimated GFR (MDRD) > 60 mL/min (>60) 09/18/21 23:55 BUN/Creatinine Ratio 14.4 (14-18) 09/18/21 23:55 Glucose 107 mg/dL (70-99) H 09/18/21 23:55 Calcium 9.3 mg/dL (8.5-10.1) 09/18/21 23:55 Total Bilirubin 0.5 mg/dL (0.2-1.0) 09/18/21 23:55 AST 12 U/L (15-37) L 09/18/21 23:55 ALT 25 U/L (14-59) 09/18/21 23:55 Alkaline Phosphatase 97 U/L (46-116) 09/18/21 23:55 Total Protein 7.7 g/dl (6.4-8.2) 09/18/21 23:55 Albumin 3.7 g/dl (3.4-5.0) 09/18/21 23:55 Globulin 4.0 gm/dL 09/18/21 23:55 Albumin/Globulin Ratio 0.9 (1-2) L 09/18/21 23:55 Lipase 104 U/L (73-393) 09/18/21 23:55 HCG, Qual Negative (NEGATIVE) 09/18/21 23:55 Urine Color Yellow (Yellow) 09/18/21 23:47 Urine Appearance Slt cloudy (Clear) H 09/18/21 23:47 Urine pH 5.5 (5.0-8.0) 09/18/21 23:47 Ur Specific [place] > or = 1.030 (1.005-1.030) 09/18/21 23:47 Urine Protein Negative (Negative) 09/18/21 23:47 Urine Glucose (UA) Negative (Negative) 09/18/21 23:47 Urine Ketones 1+ (Negative) H 09/18/21 23:47 Urine Occult Blood 2+ (Negative) H 09/18/21 23:47 Urine Nitrite Negative (Negative) 09/18/21 23:47 Urine Bilirubin 1+ (Negative) H 09/18/21 23:47 Urine Urobilinogen 0.2 (0.2-1.0) 09/18/21 23:47 Ur Leukocyte Esterase Negative (Negative) 09/18/21 23:47 Urine RBC 0-5 /hpf (0-5) 09/18/21 23:47 Urine WBC 0-5 /hpf (0-5) 09/18/21 23:47 Ur Squamous Epith Cells 0-5 /hpf (0-5) 09/18/21 23:47 Urine Bacteria Few /hpf (FEW) 09/18/21 23:47 Urine Mucus Many /hpf (FEW) H 09/18/21 23:47 Above labs reviewed and noted and within acceptable ranges to proceed with scheduled procedure. - Allergies Allergies/Adverse Reactions: Allergies Allergy/AdvReac Type Severity Reaction Status Date / Time No Known Allergies Allergy Verified 09/18/21 23:22 - Anesthesia Plan Pre-Op Medication Ordered: None - Acknowledgements Anesthesia Type Planned: General Anesthesia Pt an Appropriate Candidate for the Planned Anesthesia: Yes Alternatives and Risks of Anesthesia Discussed w Pt/Guardian: Yes Pt/Guardian Understands and Agrees with Anesthesia Plan: Yes PreAnesthesia Questionnaire - Past Health History Medical/Surgical History: Denies Medical/Surgical History Gastrointestinal History: Reports: GERD 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: Psychiatric History: Reports: Anxiety, Depression Other Psychiatric History: doing well; has been off meds for over a year Endocrine/Metabolic History: Reports: Hypothyroidism - Past Surgical History Musculoskeletal Surgical History: Reports: Other (See Below) Other Musculoskeletal Surgeries/Procedures:: broken arm age 8 - SUBSTANCE USE Tobacco Use Status *Q: Never Tobacco User Tobacco Use Within Last Twelve Months: Vaping Second Hand Smoke Exposure: No Recreational Drug Use History: No - HOME MEDS Home Medications: Home Meds Ranitidine [Zantac] 150 mg PO DAILY PRN 07/27/19 [History] Sertraline [Zoloft] 50 mg PO DAILY 07/27/19 [History] cloNIDine HCL [Catapres] 0.1 mg PO DAILY 07/27/19 [History] norgestimate-ethinyl estradioL [Estarylla 0.25-0.035 mg Tablet] 1 tab PO DAILY 07/27/19 [History] Levothyroxine 75 mcg PO ACBREAKFAST 09/18/21 [History] oxyCODONE 5 mg PO Q4H PRN #15 tab 09/19/21 [Rx] - CURRENT (IN HOUSE) MEDS Current Meds: Current Medications Cefoxitin Sodium 2 gm/ Premix 50 mls @ 100 mls/hr IV ONETIME ONE Stop: 09/19/21 03:29 Discontinued Medications Diatrizoate Meglum/Diatrizoate Sod (Diatrizoate Meglumine/Diatrizoate Sodium 37% 120 Ml Bottle) 120 ml PO ONETIME ONE Stop: 09/19/21 02:10 Last Admin: 09/19/21 02:10 Dose: 120 ml Documented by: Lactated Ringer's (Ringers, Lactated) 1,000 mls @ 999 mls/hr IV .BOLUS ONE Stop: 09/19/21 01:56 Last Admin: 09/19/21 01:17 Dose: 999 mls/hr Documented by: Iopamidol (Iopamidol 612 Mg/Ml 100 Ml Bottle) 100 ml IVPUSH ONETIME ONE Stop: 09/19/21 02:10 Last Admin: 09/19/21 02:10 Dose: 100 ml Documented by: Sodium Chloride (Sodium Chloride 0.9% 10 Ml Sdv) 10 ml FLUSH ONETIME ONE Stop: 09/19/21 02:10 Last Admin: 09/19/21 02:10 Dose: 10 ml Documented by:
--- NOTE | 2021-09-19 03:10 | PCM.PRNOTE ---
- Free Text/Narrative Note: Date: 09/19/2021 Operation: Laparoscopic appendectomy Indication: acute appendicitis Surgeon: Harpreet Hill MD Findings: acute appendicitis Detailed Report: The patient was taken to the operating room and placed on the table in supine position. Timeout was performed and general endotracheal anesthesia was ini tiated. The patient's left arm was tucked at her side and the abdomen was prepped and draped in usual sterile fashion. A Veress needle was placed to the left upper quadrant in order to establish pneumoperitoneum. Once pressure reached 15 mmHg, air was aspirated with a needle and syringe at the umbilicus. A 12 mm bladed trocar was inserted inferior to the umbilicus. A 5 mm 30 degree laparoscope was inserted and the abdomen and contents were inspected. There was no inadvertent injury noted from Veress needle placement and this was removed. An additional 5 mm port was placed in the left lower quadrant, and an additional port placed in the suprapubic area. The patient was positioned in Trendelenburg and rotated towards the surgeon standing on the patient's left side. The appendix was identified coming off the base of the cecum. A window was made in the mesoappendix near the base of the appendix. The appendix was stapled off using a linear cutting laparoscopic stapler with vascular load. The mesoappendix was divided using a [place] LigaSure. The specimen was placed in an Endo Catch bag and removed through the umbilical port site. The dissection field appeared clean and dry. The umbilical site was closed at the level of the fascia with 0 Vicryl using laparoscopic suture passer. The lateral port was removed under laparoscopic visualization and hemostasis was satisfactory. Pneumoperitoneum was released and the last port was removed. All incisions were closed with running subcuticular Vicryl suture. Wounds were dressed with Dermabond. A total of 30 cc 0.5% Marcaine was used for local anesthetic throughout the case. The patient tolerated the procedure well.
[2021-09-19 03:13] LABS: CORONAVIRUS COVID-19 NAA NEGATIVE (NEGATIVE)
[2021-09-19] MEDS ORDERED: Bupivacaine 0.5% 30 ML SDV ONE (03:23)
[2021-09-19] MEDS ORDERED: Dexamethasone 4 MG/ML 5 ML MDV ONE (04:25)
[2021-09-19] MEDS ORDERED: Midazolam 1 MG/ML 2 ML SDV ONE (04:25)
[2021-09-19] MEDS ORDERED: Lactated Ringers 1,000 ML ONE ×2 (04:25→06:13)
[2021-09-19] MEDS ORDERED: Ondansetron 4 MG/2 ML SDV ONE (04:25)
[2021-09-19] MEDS ORDERED: Ketorolac 30 MG/ML SDV ONE (04:25)
[2021-09-19] MEDS ORDERED: Propofol 200 MG/20 ML SDV ONE (04:26)
[2021-09-19] MEDS ORDERED: fentaNYL 250 MCG/5 ML SDV ONE (04:26)
[2021-09-19] MEDS ORDERED: Rocuronium 50 MG/5 ML Vial ONE (04:28)
[2021-09-19] MEDS ORDERED: HYDROmorphone 0.5 MG/0.5 ML Syringe ONE (06:20)
[2021-09-19] MEDS ORDERED: diphenhydrAMINE 50 MG/ML SDV IVPUSH PRN (06:24)
[2021-09-19] MEDS ORDERED: ePHEDrine 50 MG/ML SDV IVPUSH PRN (06:24)
[2021-09-19] MEDS ORDERED: Ondansetron 4 MG/2 ML SDV IVPUSH PRN (06:24)
[2021-09-19] MEDS ORDERED: HYDROmorphone 0.5 MG/0.5 ML Syringe IVPUSH PRN (06:24)
[2021-09-19] MEDS ORDERED: Albuterol 0.083% 2.5 MG/3 ML Neb Soln NEB PRN (06:24)
[2021-09-19] MEDS ORDERED: Midazolam 1 MG/ML 2 ML SDV IVPUSH PRN (06:24)
[2021-09-19] MEDS ORDERED: fentaNYL 100 MCG/2 ML SDV IVPUSH PRN (06:24)
--- NOTE | 2021-09-19 07:18 | PCM.POSTAN ---
POST ANESTHESIA ASSESSMENT - MENTAL STATUS Mental Status: Alert - VITAL SIGNS Vital Signs: Last Vital Signs Temp 36.4 C 09/19/21 07:05 Pulse 73 09/18/21 0705 Resp 17 09/19/21 07:05 BP 107/61 09/19/21 07:05 Pulse Ox 96 09/19/21 07:05 - RESPIRATORY Respiratory Status: Respiratory Rate WNL, Airway Patent, O2 Saturation Stable, Supplemental Oxygen - CARDIOVASCULAR CV Status: Pulse Rate WNL, Blood Pressure Stable - GASTROINTESTINAL GI Status: No Symptoms - POST OP HYDRATION Hydration Status: Adequate & Stable
--- NOTE | 2021-09-19 07:28 | PCM48HPAN ---
Post Anesthesia Note - EVALUATION WITHIN 48HRS OF ANESTHETIC Vital Signs in Normal Range: Yes Patient Participated in Evaluation: Yes Respiratory Function Stable: Yes Airway Patent: Yes Cardiovascular Function Stable: Yes Hydration Status Stable: Yes Pain Control Satisfactory: Yes Nausea and Vomiting Control Satisfactory: Yes Mental Status Recovered: Yes Vital Signs: Last Vital Signs Temp 36.4 C 09/19/21 07:05 Pulse 100 09/18/21 23:19 Resp 15 09/19/21 07:20 BP 111/70 09/19/21 07:20 Pulse Ox 99 09/19/21 07:20
--- NOTE | 2021-09-19 07:39 | CT ---
CT abdomen and pelvis Technique: Multiple axial sections were obtained from above the dome of the diaphragm inferiorly through the pubic symphysis. Intravenous contrast and oral contrast were utilized. Delayed images were then obtained through the bladder. Reconstructed coronal and sagittal images were also obtained. Comparison: Prior CT abdomen and pelvis exam of 10/16/20. Findings: Appendix is slightly prominent in size with very minimal inflammatory change. Findings are suspicious for very early appendicitis. Visualized lung bases show nothing acute. Liver contains no focal abnormality. Spleen size is normal. Adrenal glands show no nodule. No abnormality is seen within the pancreas. Gallbladder contains no calcified gallstones. Kidneys show symmetric contrast enhancement with no hydronephrosis or mass. Abdominal aorta shows no aneurysm. No retroperitoneal adenopathy or mesenteric abnormalities are seen. No pelvic mass or adenopathy is seen. Delayed images show contrast within the distal ureters and within the bladder. Bone window settings were reviewed which show no acute osseous abnormality. Impression: 1. Findings suspicious for very early appendicitis. 2. Other findings believed to be incidental as described above. Diagnostic code #5 I agree with preliminary report from [facility], finalized on 09/19/21, 3:42 AM [employer]EN[employer] DES[employer] ENGINE[employer], code 1
== END 2021-09-19 08:09 | disposition home or self-care (01) ==
LOC: JD.ED 23:08 → JD.SDS 09-19 03:13
PROVIDERS: ATTEND Surgery
DX: K35.30 Acute appendicitis with localized peritonitis, without perforation or gangrene (principal); E66.9 Obesity, unspecified; E03.9 Hypothyroidism, unspecified; D72.829 Elevated white blood cell count, unspecified; K21.9 Gastro-esophageal reflux disease without esophagitis; F32.A Depression, unspecified; Z79.899 Other long term (current) drug therapy; Z79.890 Hormone replacement therapy; Z01.812 Encounter for preprocedural laboratory examination; Z20.822 Contact with and (suspected) exposure to COVID-19; Z68.41 Body mass index [BMI] 40.0-44.9, adult
CPT/HCPCS: 0240U; 36415; 44970; 74177; 80053; 81001; 83690; 84703; 85025; 96365; 99285; J0330; J0694; J1100; J1170; J1885; J2250; J2370; J2405; J2704; J3010; J3490; J7120; Q9963; Q9967; 00840; 88304; J2710

== ENCOUNTER 2023-01-15 08:40 | Emergency (ER) | payer MEDICAID ==
[2023-01-15] MEDS ORDERED: Sodium Chloride 0.9% 1,000 ML IV ONE (09:06)
[2023-01-15] MEDS ORDERED: Dexamethasone 10 MG/ML SDV IVPUSH ONE (09:06)
[2023-01-15 09:34] LABS: CORONAVIRUS COVID-19 NAA NEGATIVE (NEGATIVE)
[2023-01-15] MEDS ORDERED: Iopamidol 612 MG/ML 100 ML Bottle IVPUSH ONE (10:42)
[2023-01-15] MEDS ORDERED: cefTRIAXone 1 GM in Sodium Chloride 0.9% 100 ML IV ONE (11:51)
== END 2023-01-15 12:20 | disposition home or self-care (01) ==
LOC: JD.ED 08:40
DX: J02.0 Streptococcal pharyngitis (principal); E03.9 Hypothyroidism, unspecified; Z79.899 Other long term (current) drug therapy; Z20.822 Contact with and (suspected) exposure to COVID-19
CPT/HCPCS: 0241U; 36415; 70491; 80053; 84703; 85025; 87651; 96361; 96374; 99285; J1100; J7030; Q9967; 99284

== ENCOUNTER 2025-03-17 17:50 | Emergency (ER) | payer SELFPAY ==
[2025-03-17] MEDS: Diphtheria,Pertussis(Acell),Tetanus Vaccine 0.5 ML Syringe IM ONE (18:33)
[2025-03-17] MEDS: Lidocaine 1% 10 ML MDV INJECT ONE (18:46)
== END 2025-03-17 19:09 | disposition home or self-care (01) ==
LOC: JD.ED 17:50
DX: S01.411A Laceration without foreign body of right cheek and temporomandibular area, initial encounter (principal); S01.81XA Laceration without foreign body of other part of head, initial encounter; K21.9 Gastro-esophageal reflux disease without esophagitis; E03.9 Hypothyroidism, unspecified; Z79.890 Hormone replacement therapy; Z79.899 Other long term (current) drug therapy; Z23 Encounter for immunization; W25.XXXA Contact with sharp glass, initial encounter; Y93.89 Activity, other specified
CPT/HCPCS: 12011; 90471; 90715; 99283; J2003